=== PATIENT | female | born 1970 | race Caucasian/White ===

== ENCOUNTER → 2019-04-15 10:06 | Outpatient (CLI) | payer BC, SELFPAY ==
--- NOTE | 2019-04-15 10:11 | MM_ITS ---
PROCEDURE: MM DIG SCREENING MAMM BI W/CAD Patient Age:49Y CLINICAL INDICATION: Routine Screening Mammogram COMPARISON: DMSB DIG MAMM-SCREEN CHYNA from 08/15/2013 DMSB DIG MAMM-SCREEN CHYNA from 11/22/2014 DMSB DIG MAMM-SCREEN CHYNA from 02/19/2016 DMSB DIG MAMM-SCREEN CHYNA W/CAD from 03/31/2017 TECHNIQUE: Standard CC and MLO images were obtained. R2 CAD reviewed. FINDINGS: Diffuse dense heterogeneous breast. This pattern bilaterally decreases sensitivity of mammography. No discrete new suspicious densities. No dominant mass. No suspicious calcifications. Heterogeneous areas of density and mild asymmetry seem to be prior to multiple previous studies. Would note that ultrasound may be useful complement/augment to screening mammography in breast of this increased dense character, particularly palpable area arises. IMPRESSION: Dense heterogeneous breast pattern-which does decrease sensitivity of mammography Stable Appearing Mammogram with no new areas of significant concern compared to multiple prior studies , Bilateral follow-up 1 year recommended and encouraged BI-RAD Category: 2 Benign Finding(s) FOLLOW-UP: 1YR 1 Year Follow-up (A letter has been sent to the patient regarding results of the study.) Dictated by: Bill Torres MD 04/20/2019 11:58 Signed by: <Electronically signed by Bill Torres MD in [place]> 04/20/2019 11:58
== END ==
PROVIDERS: PCP Internal Medicine Adolescent Medicine; Visit Provider Nurse Practitioner Obstetrics & Gynecology
DX: Z12.31 Encounter for screening mammogram for malignant neoplasm of breast (principal)
CPT/HCPCS: 77067

== ENCOUNTER → 2019-09-15 09:47 | Outpatient (CLI) | payer BC, SELFPAY ==
--- NOTE | 2019-09-15 09:57 | MR_ITS ---
PROCEDURE: MR ANKLE LT WO/W CON CLINICAL INDICATION: left ankle injury, pain Left ankle injury with pain, fracture, sprain of the ATFL, ATFL tear COMPARISON: XR ANKLE LT MIN 3V from 09/10/2019 TECHNIQUE: Routine multiplanar multi echo sequences are performed without and with gadolinium enhancement. The FINDINGS: There is a type 3 accessory navicular bone. There is some minimal edema at the unfused ossification center with some minimal enhancement suggesting some mild underlying inflammation. No other areas of bone marrow edema are evident. There is an acute mildly displaced avulsion fracture involving the dorsal and proximal aspect of the navicular as seen on the radiograph. There is some minimal edema along the anterior and distal aspect of the talus with a small area of decreased linear signal intensity consistent with an avulsion fracture as also seen on the radiograph. Soft tissue edema is present along the dorsum of the foot at these areas of avulsion fracture. The anterior and posterior tibiofibular ligaments appear intact. There does appear to be a complete tear of the ATFL. There is associated soft tissue swelling along the lateral aspect of the ankle the PT FL appears intact as does the deltoid ligament. No tendinous abnormalities. There is a small amount fluid in the posterior talocalcaneal region. There is an os trigonum with a small amount of fluid around the os trigonum and suggestion of some minimal edema of the os trigonum. IMPRESSION: 1. Tear of the anterior talofibular ligament. 2. Avulsion fracture of the dorsal navicular and dorsal talus distally with soft tissue edema. 3. Type 3 accessory navicular bone with some mild edema at the synchondrosis 4. Soft tissue swelling along the lateral ankle and the dorsal lateral aspect of the midfoot. There is some mild generalized subcutaneous edema about the foot and ankle. The Dictated by: Earl Banegas MD 09/21/2019 08:33 Electronically signed by Earl Banegas MD in [place] 09/21/2019 08:33
== END ==
PROVIDERS: PCP Internal Medicine Adolescent Medicine; Visit Provider Podiatrist
DX: S92.155A Nondisplaced avulsion fracture (chip fracture) of left talus, initial encounter for closed fracture (principal); S92.252A Displaced fracture of navicular [scaphoid] of left foot, initial encounter for closed fracture
CPT/HCPCS: 73723; A9576

== ENCOUNTER → 2019-10-20 15:58 | Outpatient (CLI) | payer BC, SELFPAY ==
--- NOTE | 2019-10-20 16:02 | XR_ITS ---
PROCEDURE: XR ANKLE WT BEARING LT MIN 3V CLINICAL INDICATION: fracture follow up COMPARISON: ANKL3 ANKLE-LT-3 VIEWS from 04/25/2014 XR ANKLE LT MIN 3V from 09/10/2019 FINDINGS: Avulsion fractures are once again noted along the dorsal aspect the talus and navicular as previously described not significantly changed. No new abnormalities are evident. IMPRESSION: No change minimally displaced avulsion fractures at the dorsal aspect of the talus and navicular Dictated by: Earl Banegas MD 10/20/2019 16:40 Electronically signed by Earl Banegas MD in [place] 10/20/2019 16:40
--- NOTE | 2019-10-20 16:02 | XR_ITS ---
PROCEDURE: XR FOOT WT BEARING LT 3V CLINICAL INDICATION: fracture follow up COMPARISON: XR ANKLE LT MIN 3V from 09/10/2019 MR ANKLE LT WO/W CON from 09/15/2019 FINDINGS: No change in the avulsion fracture along the dorsal aspect of the talus distally and at the navicular there is a prominent posterior talar process versus os trigonum and there is a small calcaneal spur. The joint spaces are well-preserved. No significant degenerative/arthritic changes. No erosive changes evident. Other findings:None. IMPRESSION: No change avulsion fractures of the dorsal and distal aspect of the talus and dorsal and proximal aspect of the navicular Dictated by: Earl Banegas MD 10/20/2019 16:43 Electronically signed by Earl Banegas MD in [place] 10/20/2019 16:43
== END ==
PROVIDERS: PCP Internal Medicine Adolescent Medicine; Visit Provider Podiatrist
DX: S92.902A Unspecified fracture of left foot, initial encounter for closed fracture (principal); S93.402A Sprain of unspecified ligament of left ankle, initial encounter
CPT/HCPCS: 73610; 73630

== ENCOUNTER 2019-11-02 16:58 | Outpatient (RCR) | payer BC, SELFPAY ==
--- NOTE | 2019-11-02 18:03 | HMH.PTOPEV ---
PT Outpatient Evaluation Rehab PT Outpatient Evaluation Start: 11/02/19 17:11 Freq: Status: Active Protocol: Document 11/02/19 17:53 STAS (Rec: 11/02/19 18:03 STAS [id number]) Electronically Signed By Robert Addison, PT 11/02/19 17:53 Outpatient Therapy Subjective History Subjective History Patient is a 49 year old female presenting to outpatient PT with reports of L foot/ankle pain S/P L inversion ankle sprain after a fall at home. MRI indicates ATFL with avulsion fractures of the talus and navicular. Injury occurred 09/10/19. No other comorbidites to report. Chief Complaint Pain,Stiff,Weakness Symptom Type Dull Symptoms Relieved By Rest/Positioning Symptoms Aggravated By Standing,Physical Activity, Walking Prior Functional Limitations None Current Functional Limitations Standing,Recreation Activity, Walking,Stairs,Balance Symptom Description Intermittent Level of pain today (0-10) 0 Pain scale - at its best (0-10) 0 Pain scale - at its worst (0-10) 3 Ankle/Foot Eval Gait Observation General Gait Pattern Observation No Deviations/Normal Assistive Device Ambulation Assistive Device None Palpation Tenderness left ATF TTP positive ROM Ankle/Foot Dorsiflexion w/Knee Extended 16 Active Range Motion (degrees) Ankle/Foot Plantar Flexion Active Range WNL of Motion (degrees) Ankle/Foot Eversion Active Range of 18 Motion (degrees) Ankle/Foot Inversion Active Range of 26 Motion (degrees) Ankle/Foot ROM Limitations Soft Tissue Tightness Great Toe ROM Reason Not Measured Within Functional Limits Accessory Movements Ankle Accessory Movements that Elicit Talus Ventral Ridgeway Symptoms MMT left Ankle Dorsiflexion Strength Grade 4- Good- Ankle Plantarflexion Strength Grade 4 Good Foot Eversion Strength Grade 4- Good- Foot Inversion Strength Grade 4- Good- Special Tests Ankle Anterior Drawer Test Negative Left Ankle Eversion Test Negative Left Talar Tilt Test Negative Left Ankle Posterior Drawer Test Negative Left Foot Interdigital Neuroma Test Negative Left Outpatient Therapy Assessment Impairments Problems/Impairmments Palpation Tenderness,Impaired Range of Motion,Impaired Strength,Impaired Walking, Impaired Standing,Impaired
== END 2019-11-02 16:59 | disposition home or self-care (01) ==
LOC: PT 16:58
PROVIDERS: Visit Provider Nurse Practitioner
DX: S92.252D Displaced fracture of navicular [scaphoid] of left foot, subsequent encounter for fracture with routine healing (principal); S92.152D Displaced avulsion fracture (chip fracture) of left talus, subsequent encounter for fracture with routine healing; S93.402D Sprain of unspecified ligament of left ankle, subsequent encounter
CPT/HCPCS: 97163

== ENCOUNTER 2020-08-19 11:09 | Emergency (ER) | payer BC, SELFPAY ==
[2020-08-19 11:10] VITALS: BP 136/80; PULSE 90; RESP 14; TEMP 36.6; O2SAT 97; BMI 27.4
--- NOTE | 2020-08-19 11:57 | HMH.EDUTC ---
[facility] [place] Disposition Clinical Impression: Close exposure to COVID-19 virus Disposition: Home, Self-Care Condition on Discharge: Good Instructions: DI for COVID-19 (Suspected or Confirmed ), Preventing the Spread of Coronavirus Discharge Instructions Additional Instructions: isolate until test results are known retrun if needed Referrals: Andres Baxter MD [Primary Care Provider] - Time of Disposition: 12:04 Medical Decision Making - Eligio Inquiry Pt receiving controlled substance: No Orders (Tests/Meds): ORDERS Category Date Time Status Covid-19 Nasal PCR ([facility]) Routine Lab 08/19/20 11:23 Ordered [facility] [place] HPI - General Chief complaint: Urgent [facility] Stated complaint: covid exposure Time Seen by Provider: 08/19/20 11:58 Source of Information: Patient Limitations: No Limitations - History of Present Illness Provider Complaint: 50 yr old female presents for covid test. pt states she was exposed but denies symptoms. - Related Data Home Medications Medication Instructions Recorded Confirmed bupropion HCl 300 mg 24 hr tablet, 300 mg PO QAM 11/03/17 10/20/19 extended release escitalopram oxalate 20 mg tablet 1 tab PO DAILY #90 tab 04/13/19 10/20/19 Previous Rx's Medication Instructions Recorded diclofenac sodium 1 % topical gel 4 g TOPICAL QID PRN #30 g 09/12/19 tramadol 50 mg tablet 50 mg PO Q6H PRN #30 tab 09/12/19 phentermine 37.5 mg tablet 37.5 mg PO DAILY PRN #60 tab 11/30/19 estradiol 1 mg tablet See Rx Instructions .ROUTE 08/09/20 .COMPLEX #90 tablet Allergies Allergy/AdvReac Type Severity Reaction Status Date / Time NKDA - NO KNOWN DRUG Allergy Unknown Uncoded 09/22/19 14:00 ALLERGIES [facility] History - Hepatitis A Screen Attestation statement:: This patient has been screened for Hepatitis A risk factors. I have reviewed the patient's past medical history: Yes Medical History: Reports:: Anxiety, Depression Denies:: Diabetes Mellitus Type 1, Hyperlipidemia, Hypertension Other Surgeries: Yes: No Previous Surgery Amputation: No Fractures: No Comment: left wrist - Social History Smoking Status: Never smoker Alcohol Intake: current Alcohol Intake Frequency:: holidays/special occasions only Substance Use Type: denies use Occupational Status: employed Household Members: spouse - Psychiatric History Pschychiatric History:: Reports:: Anxiety, Depression Family Hx:: Cancer, Diabetes Comment: Epilepsy ROS Obtained: Yes Systems reviewed as appropriate & no additional complaints - Constitutional Constitutional: Reports system reviewed and no additional complaints, except as docu, Denies fever(s) - Eyes Eyes: Reports system reviewed and no additional complaints, except as docu, Denies itchy eyes - ENT Ears, Nose, Mouth, and Throat: Reports system reviewed and no additional complaints, except as docu, Denies sore throat - Cardiovascular Cardiovascular: Reports system reviewed and no additional complaints, except as docu, Denies chest pain - Respiratory Respiratory: Yes system reviewed and no additional complaints, except as docu, No shortness of breath - Gastrointestinal Gastrointestingal: Reports: system reviewed and no additional complaints, except as docu. Denies: nausea, vomiting - Genitourinary Female Genitourinary: Reports system reviewed and no additional complaints, except as docu - Musculoskeletal Musculoskeletal: Reports system reviewed and no additional complaints, except as docu, Denies tingling - Integumentary/Breasts Skin/Breast: Reports system reviewed and no additional complaints, except as docu, Denies rash - Neurologic Neurologic: Reports system reviewed and no additional complaints, except as docu, Denies dizziness - Endocrine Endocrine: Reports system reviewed and no additional complaints, except as docu, Denies fatigue - Hematologic/Lymphatic Henatologic/Lymphatic: Reports system reviewed and no additional complaints, e
[2020-08-19 12:07] VITALS: BP 136/80; PULSE 90; RESP 14; TEMP 36.6; O2SAT 97
== END 2020-08-19 12:08 | disposition home or self-care (01) ==
PROVIDERS: Emergency Provider Nurse Practitioner Family; PCP Internal Medicine Adolescent Medicine
DX: Z20.822 Contact with and (suspected) exposure to COVID-19 (principal); F41.8 Other specified anxiety disorders
CPT/HCPCS: 99202; G0463; U0003

== ENCOUNTER → 2020-08-31 11:06 | Outpatient (CLI) | payer BC, SELFPAY ==
[2020-09-01 11:37] LABS: Covid-19 Nasal PCR Sendout P&C Negative
== END ==
PROVIDERS: PCP Internal Medicine Adolescent Medicine; Visit Provider Internal Medicine Adolescent Medicine
DX: Z20.822 Contact with and (suspected) exposure to COVID-19 (principal)
CPT/HCPCS: U0004

== ENCOUNTER 2020-09-16 13:47 | Emergency (ER) | payer BC, SELFPAY ==
[2020-09-16 14:00] VITALS: BP 154/88; PULSE 99; RESP 14; TEMP 36.6; O2SAT 97; BMI 21.2
--- NOTE | 2020-09-16 14:23 | HMH.EDUTC ---
[facility] [place] Disposition Clinical Impression: Exposure to COVID-19 virus Disposition: Home, Self-Care Condition on Discharge: Good Instructions: DI for COVID-19 (Suspected or Confirmed ), Preventing the Spread of Coronavirus Discharge Instructions Additional Instructions: Drink plenty of fluids. Take tylenol or ibuprofen for pain or fever. Take the medications as directed. Follow up with your regular doctor. GO TO THE ER FOR ANY WORSENING SYMPTOMS Referrals: Andres Baxter MD [Primary Care Provider] - Time of Disposition: 14:24 Medical Decision Making - Medical Records Medical records reviewed: No: I reviewed the patient's medical records. - Eligio Inquiry Pt receiving controlled substance: No Vital Signs: 09/16/20 14:00 09/16/20 14:28 Temperature 97.8 F 97.8 F Temperature Source Oral Pulse Rate 99 H Pulse Rate [Right Brachial] 99 H Respiratory Rate 14 14 Blood Pressure 154/88 H Blood Pressure [Right Arm] 154/88 H Blood Pressure Mean [Right Arm] 110 Blood Pressure Source [Right Arm] Automatic Cuff Blood Pressure Position [Right Arm] Sitting 02 Sat by Pulse Oximetry 97 Oxygen Delivery Method Room Air [facility] [place] HPI - General Stated complaint: Covid test; headache;cough Time Seen by Provider: 09/16/20 14:23 - History of Present Illness Provider Complaint: She states that her has covid-19 at her home. She has had a mild headache off and on since yesterday. Other than that she denies other symptoms. - Related Data Home Medications Medication Instructions Recorded Confirmed bupropion HCl 300 mg 24 hr tablet, 300 mg PO QAM 11/03/17 10/20/19 extended release escitalopram oxalate 20 mg tablet 1 tab PO DAILY #90 tab 04/13/19 10/20/19 Previous Rx's Medication Instructions Recorded diclofenac sodium 1 % topical gel 4 g TOPICAL QID PRN #30 g 09/12/19 tramadol 50 mg tablet 50 mg PO Q6H PRN #30 tab 09/12/19 phentermine 37.5 mg tablet 37.5 mg PO DAILY PRN #60 tab 11/30/19 estradiol 1 mg tablet See Rx Instructions .ROUTE 08/09/20 .COMPLEX #90 tablet Allergies Allergy/AdvReac Type Severity Reaction Status Date / Time No Known Allergies Allergy Verified 09/16/20 14:25 [facility] History - Hepatitis A Screen Attestation statement:: This patient has been screened for Hepatitis A risk factors. I have reviewed the patient's past medical history: Yes Medical History: Reports:: Anxiety, Depression Denies:: Diabetes Mellitus Type 1, Hyperlipidemia, Hypertension Other Surgeries: Yes: No Previous Surgery Amputation: No Fractures: No Comment: left wrist - Social History Smoking Status: Never smoker Alcohol Intake: never Alcohol Intake Frequency:: holidays/special occasions only Substance Use Type: denies use Occupational Status: other Household Members: spouse - Psychiatric History Pschychiatric History:: Reports:: Anxiety, Depression Family Hx:: Cancer, Diabetes Comment: Epilepsy ROS Obtained: Yes All systems reviewed & no additional complaints - Constitutional Constitutional: Reports system reviewed and no additional complaints, except as docu - Eyes Eyes: Reports system reviewed and no additional complaints, except as docu - ENT Ears, Nose, Mouth, and Throat: Reports system reviewed and no additional complaints, except as docu - Cardiovascular Cardiovascular: Reports system reviewed and no additional complaints, except as docu - Respiratory Respiratory: Reports system reviewed and no additional complaints, except as docu - Gastrointestinal Gastrointestingal: Reports: system reviewed and no additional complaints, except as docu Physical Exam - General General appearance: alert, in no apparent distress - Head Head exam: atraumatic, normocephalic, normal inspection - Eye Eye exam: Present: normal appearance, PERRL, EOMI - ENT ENT exam: Present: normal exam, normal oropharynx, mucous membranes moist, TM's normal bilaterally, normal drafting supervisor
[2020-09-16 14:28] VITALS: BP 154/88; PULSE 99; RESP 14; TEMP 36.6; O2SAT 97
== END 2020-09-16 14:30 | disposition home or self-care (01) ==
PROVIDERS: Emergency Provider Nurse Practitioner Family; PCP Internal Medicine Adolescent Medicine
DX: Z20.822 Contact with and (suspected) exposure to COVID-19 (principal); F41.8 Other specified anxiety disorders
CPT/HCPCS: 99202; G0463; U0003

== ENCOUNTER → 2020-11-15 16:39 | Outpatient (CLI) | payer BC, SELFPAY ==
[2020-11-15 17:02] LABS: Basophils # 0.1 K/mm3 (0-0.2); Basophils % 0.5 % (0.1-2.0); Eosinophils # 0.2 K/mm3 (0.0-0.4); Eosinophils % 1.9 % (0.1-12.0); Hemoglobin 14.1 g/dL (12.2-16.2); Lymphocytes # 1.8 K/mm3 (0.7-4.5); Lymphocytes % 15.2 % (10-50); Mean Corpuscular HGB Conc 32.8 g/dL (31.8-35.4); Mean Corpuscular Hemoglobin 30.4 pg (27.0-31.2); Mean Corpuscular Volume 92.7 fl (81-99); Mean Platelet Volume 7.7 fl (7.4-10.4); Monocytes # 0.5 K/mm3 (0.1-1.0); Monocytes % 4.5 % (1.7-9.3); Neutrophils # 9.2 K/mm3 (1.8-7.8); Neutrophils % 77.9 % (37.0-80.0); Platelet Count 339 K/mm3 (142-424); Red Blood Count 4.64 M/mm3 (4.20-5.40); Red Cell Distribution Width 13.3 % (11.5-17.5); White Blood Count 11.8 K/mm3 (4.8-10.8)
[2020-11-15 17:38] LABS: Alanine Aminotransferase 36 U/L (12-78); Albumin Level 4.3 g/dl (3.5-5.0); Albumin/Globulin Ratio 1.5 (1.1-1.8); Alkaline Phosphatase 98 U/L (38-126); Anion Gap 9.4 mEq/L (5-15); Aspartate Amino Transferase 32 U/L (14-36); Bilirubin,Total 0.3 mg/dl (0.2-1.3); Blood Urea Nitrogen 14 mg/dl (7-17); Calcium 9.4 mg/dl (8.4-10.2); Carbon Dioxide 34 mmol/L (22.0-30.0); Chloride 103 mmol/L (98-107); Estimated Glomerular Filt Rate 76 ml/min (>60); GFR (African American) 92 ML/MIN (>60); Globulin 2.9 g/dL (1.3-3.2); Glucose 102 mg/dl (74-100); Potassium 4.4 mmoL/L (3.5-5.1); Sodium 142 mmol/L (136-145); Total Protein,Serum 7.2 g/dl (6.3-8.2)
[2020-11-15 17:55] LABS: Triiodothryronine (T3) Uptake 27 % (23.5-40.5)
[2020-11-15 18:27] LABS: Vitamin B12 565 pg/mL (239-931)
[2020-11-15 19:23] LABS: Free Thyroxine Index 2.5 ug/dL (5.93-13.13); T4 (Thyroxine) 9.3 ug/dl (5.53-11.0)
[2020-11-15 19:37] LABS: Thyroid Stimulating Hormone 3.14 uIU/mL (0.465-4.68)
== END ==
PROVIDERS: Visit Provider Internal Medicine Adolescent Medicine
DX: B02.9 Zoster without complications (principal); G62.9 Polyneuropathy, unspecified
CPT/HCPCS: 36415; 80053; 82607; 84436; 84443; 84479; 85025

== ENCOUNTER → 2022-03-07 07:55 | Outpatient (CLI) | payer BC, SELFPAY ==
--- NOTE | 2022-03-07 07:55 | MM_ITS ---
PROCEDURE INFORMATION: Exam: MG Bilateral Screening 3D Mammography Exam date and time: 03/07/2022 7:51 AM Age: 51 years old Clinical indication: Screening examination; Additional info: Screening mammogram . Family history of breast carcinoma. TECHNIQUE: Imaging protocol: Bilateral Screening tomosynthesis and 2D mammography including computer-aided detection (CAD) when performed. COMPARISON: 1. MG MM DIG SCREENING MAMM BI W/CAD 04/15/2019 10:20 AM 2. MG DMSB DIG MAMM-SCREEN CHYNA W/CAD 03/31/2017 5:14 PM 3. MG DMSB DIG MAMM-SCREEN CHYNA 02/19/2016 4:15 PM FINDINGS: MAMMOGRAPHY: Breast composition: The breasts are heterogeneously dense, which may obscure small masses. Mass: No suspicious masses. Architectural distortion: No suspicious distortion. Calcifications: No suspicious calcifications. Asymmetric density: None. Skin thickening: None. Axillary adenopathy: None. IMPRESSION: No mammographic evidence of malignancy. Annual screening is recommended unless otherwise clinically indicated. ASSESSMENT: BI-RADS Category 1: Negative
== END ==
PROVIDERS: PCP Internal Medicine Adolescent Medicine; Visit Provider Nurse Practitioner Obstetrics & Gynecology
DX: Z12.31 Encounter for screening mammogram for malignant neoplasm of breast (principal)
CPT/HCPCS: 77063; 77067

== ENCOUNTER → 2022-03-08 08:44 | Outpatient (CLI) | payer BC, SELFPAY | PROVIDERS: PCP Internal Medicine Adolescent Medicine; Visit Provider Surgery | DX: Z01.812 Encounter for preprocedural laboratory examination (principal); Z20.822 Contact with and (suspected) exposure to COVID-19; Z12.11 Encounter for screening for malignant neoplasm of colon | CPT/HCPCS: C9803; U0003; U0005 ==

== ENCOUNTER 2022-03-11 10:24 | Day surgery (SDC) | payer BC, SELFPAY ==
[2022-03-11 10:41] VITALS: BMI 32.9
[2022-03-11 10:49] VITALS: BP 163/105; PULSE 103; RESP 18; TEMP 36.6; O2SAT 96; BMI 32.9
[2022-03-11 10:50] LABS: Urine Pregnancy, HCG Qual. Negative (Negative)
--- NOTE | 2022-03-11 10:51 | P.PN_ITS ---
[facility] Anesthesia Checklist - Patient Identification Patient Identification: Arm Band - Structural Data Admitted From: Home Planned Operative Procedure/s: Colonoscopy Consent for Planned Operative Procedure(s) Verified: Yes - NPO Status Verified Time NPO: 00:00 - Airway Assessment C-Spine Mobility Assessed: Yes TMJ Mobility Assessed: Yes Dentition: Good Dentition - Neurological Assessment Level of Consciousness: Awake Hx Seizures: No Numbness or tingling in extremities: No - Anesthesia Plan Anesthesia Risk discussed: Yes Anesthesia Plan: Verified ASA Class: I Anesthesia Type: MAC [facility] History Medical History: Reports:: Anxiety, Depression Denies:: Diabetes Mellitus Type 1, Hyperlipidemia, Hypertension *Have you ever received a pneumonia vaccine?: No *Have you received a flu vaccine this season?: Yes Anesthesia experience/problems:: None Other Surgeries: Yes: No Previous Surgery Amputation: No Fractures: No - *Social History Smoking Status: Never smoker Alcohol Intake: never Alcohol Intake Frequency:: holidays/special occasions only Substance Use Type: denies use *Occupational Status:: other Household Members: spouse *Travel in the last 8 weeks: None - Psychiatric History Pschychiatric History:: Reports:: Anxiety, Depression Family Hx:: Cancer, Diabetes
[2022-03-11 11:11] VITALS: O2SAT 96
[2022-03-11 11:48] VITALS: BP 119/63; PULSE 75; RESP 18; TEMP 36.3; O2SAT 91
--- NOTE | 2022-03-11 11:57 | P.PCN_ITS ---
- Procedure: Date: 03/11/22 Patient Date of :: 1970 Procedure Performed:: Colonoscopy with polypectomy Indications:: Remote history of colon polyps Performing Provider:: Seaums Bledsoe MD Referring Provider:: . Sedation:: Monitored anesthesia care Procedure:: After informed consent was obtained the patient was taken to the endoscopy suite. Sedation ensued after the patient was transferred to the left lateral decubitus position. Pulse, blood pressure, and oxygen saturation were monitored throughout the procedure. Digital rectal exam revealed no significant abnormality. The colonoscope was placed in position. The entire colon was evaluated. The colonoscope was carefully removed and the patient was transferred to recovery in stable condition. Please see findings and specimens below for detail. Findings:: Small hemorrhoidal tags Profound lack of relaxation Bowel preparation moderate to poor Cecal polyp Specimens:: Sessile cecal polyp (cold snare) Recommendations:: Timing of repeat colonoscopy is pending pathology but likely be between 1-2 yea rs secondary to limited bowel preparation and lack of relaxation. Complications:: No immediate with the exception of moderate to poor bowel preparation Estimated blood obtained (mL): 1
[2022-03-11 11:58] VITALS: BP 101/56; PULSE 63; RESP 18; O2SAT 91
[2022-03-11 12:08] VITALS: BP 120/61; PULSE 76; RESP 18; O2SAT 91
[2022-03-11 12:30] VITALS: BP 110/70; PULSE 65; RESP 18; O2SAT 65
== END 2022-03-11 12:30 | disposition home or self-care (01) ==
LOC: OUTP 10:26
PROVIDERS: PCP Internal Medicine Adolescent Medicine; Visit Provider Surgery
PROC: 0DJD8ZZ Inspection of Lower Intestinal Tract, Via Natural or Artificial Opening Endoscopic (ICD-10-PCS; CPT 45385; principal; 2022-03-11 11:30)
DX: Z12.11 Encounter for screening for malignant neoplasm of colon (principal); K63.5 Polyp of colon; Z86.010 Personal history of colon polyps; Z79.899 Other long term (current) drug therapy; F41.9 Anxiety disorder, unspecified; F32.A Depression, unspecified
CPT/HCPCS: 45385; 81025; J2704

== ENCOUNTER 2022-04-02 13:51 | Emergency (ER) | payer BC, OTHER, SELFPAY ==
[2022-04-02] VITALS (8 sets, daily range): BP systolic 152–187; BP diastolic 70–141; PULSE 74–93; RESP 16–20; TEMP 36.7; O2SAT 92–97; BMI 33.1
--- NOTE | 2022-04-02 13:49 | ECG_ITS ---
APPROVED REPORT Exam: Resting ECG HR:105 bpm ECG Measurements Heart Rate 105 AXES [place] 159 P 73 QRSd 161 QRS -46 QT 383 T 106 QTc 444 Conclusion SINUS TACHYCARDIA POSSIBLE LEFT ATRIAL ENLARGEMENT [-0.1mV P-WAVE IN V1/V2] LEFT AXIS DEVIATION [QRS AXIS < -30] LEFT BUNDLE BRANCH BLOCK [120+ ms QRS DURATION, 80+ ms Q/S IN V1/V2, 85+ ms R IN I/aVL/V5/V6] ABNORMAL ECG UNCONFIRMED REPORT Electronically signed by : Andres Baxter MD 04/02/2022 17:36:03
--- NOTE | 2022-04-02 13:54 | XR_ITS ---
FINAL REPORT CLINICAL HISTORY: chest pain, shortness of breath FINDINGS: TWO-VIEW CHEST There is cardiomegaly and pulmonary vascular congestion. The mediastinum is normal. There is no pneumothorax. IMPRESSION: Cardiomegaly and pulmonary vascular congestion. Reviewed, Interpreted and Dictated by Vishal Martinez III, MD Transcribed by Minerva Rod Authenticated and . [facility]
--- NOTE | 2022-04-02 14:07 | PC.NURSE ---
Spouse at BS
[2022-04-02 14:18] LABS: Basophils # 0.2 K/mm3 (0-0.2); Basophils % 1.6 % (0.1-2.0); Eosinophils # 0.2 K/mm3 (0.0-0.4); Eosinophils % 1.8 % (0.1-12.0); Hematocrit 47.3 % (37.0-47.0); Hemoglobin 15.1 g/dL (12.2-16.2); Lymphocytes # 1.8 K/mm3 (0.7-4.5); Lymphocytes % 13.5 % (10-50); Mean Corpuscular HGB Conc 31.8 g/dL (31.8-35.4); Mean Corpuscular Hemoglobin 30.6 pg (27.0-31.2); Mean Corpuscular Volume 96.3 fl (81-99); Mean Platelet Volume 8.5 fl (7.4-10.4); Monocytes # 0.6 K/mm3 (0.1-1.0); Monocytes % 4.6 % (1.7-9.3); Neutrophils # 10.6 K/mm3 (1.8-7.8); Neutrophils % 78.6 % (37.0-80.0); Platelet Count 379 K/mm3 (142-424); Red Blood Count 4.92 M/mm3 (4.20-5.40); Red Cell Distribution Width 15.2 % (11.5-17.5); White Blood Count 13.4 K/mm3 (4.8-10.8)
[2022-04-02 14:19] LABS: Chloride 105 mmol/L (98-107); Potassium 3.9 mmoL/L (3.5-5.1); Sodium 140 mmol/L (136-145)
--- NOTE | 2022-04-02 14:19 | PC.NURSE ---
notified rad of cxr order
--- NOTE | 2022-04-02 14:20 | PC.NURSE ---
MATHIEU BYRD at
--- NOTE | 2022-04-02 14:20 | PC.NURSE ---
MATHIEU BYRD at
[2022-04-02 14:22] LABS: Anion Gap 11.9 mEq/L (5-15); Blood Urea Nitrogen 18 mg/dl (7-17); Calcium 9.4 mg/dl (8.4-10.2); Carbon Dioxide 27 mmol/L (22.0-30.0); Creatinine Clearance Estimated 88 mL/min (50-200); Estimated Glomerular Filt Rate 58 ml/min (>60); GFR (African American) 70 ML/MIN (>60); Glucose 136 mg/dl (74-100)
--- NOTE | 2022-04-02 14:24 | PC.NURSE ---
Radiology at to take patient over for chest xray via wc
--- NOTE | 2022-04-02 14:45 | PC.NURSE ---
contacted lab to check on status of troponin result, spoke with eunice, states staff is putting results in now.
[2022-04-02 14:46] LABS: Troponin I 0.01 ng/ml (0.00-0.034)
--- NOTE | 2022-04-02 14:48 | CA_ITS ---
APPROVED REPORT EXAM: Comprehensive 2D, Doppler, and color-flow Echocardiogram Platform Consultant: Nazanin Sweeney RVT Ht: 5 ft 3 in Wt: 187lbs BSA: 1.88 BP: 157/109 mmHg Indications: CP,HTN 2D Dimensions IVSd 0.91 cm F: 0.6-1.0 LA Volume 58.20 mL PWd 1.06 cm F: 0.6 - 1.0 LA Volume Index 30.95 mL/m2 (M/F) 16-34 LVDd 5.11 cm F: 3.9 - 5.3 LVOT 1.92 cm (M/F) 1.5-2.5 M-Mode Dimensions RVDd 2.89 cm (0.9-2.6) LA Diam 4.11 cm (1.9-4.0) LVDd 5.98 cm (3.5-5.7) Ao Diam 2.39 cm (2.0-3.7) LVDs 5.27 cm (3.5-5.7) IVSd 0.77 cm (0.6-1.1) PWd 0.72 cm (0.6-1.1) EF (Teich) 25.20% FS 11.90% EDV (Teich) 178.60 mL TAPSE 1.53 (<1.7) ESV (Teich) 133.60 mL LV Diastology MED E' 5.90 (< 7 cm/sec) LAT E' 11.00 (<10 cm/sec) Aortic Valve LVOT Max 65.00 (70-110 cm/s) LVOT VTI 9.14 cm AoV Peak Wagner. 102.00 (50-130 cm/s) AI PHT 407.00 ms AO Peak GR. 4.10 mmHg AO Mean GR. 2.00 (<5 mmHg) AO VTI 14.33 (18-25 cm) BONNIE (VTI) 1.85 (2.5-4.5 cm2) Pulmonary Valve PV Peak Velocity 54.00 (50-150 cm/s) Tricuspid Valve TR P. Velocity 425.00 cm/s RAP Estimate 10.00 mmHg RVSP 82.20 mmHg Left Ventricle Left atrium is moderately enlarged, left ventricle is mildly dilated, mild concentric left ventricular hypertrophy, estimated ejection fraction 15%, left ventricle is globally hypokinetic, there is abnormal septal motion. Doppler evidence of low cardiac output state seen. Diastolic parameters are inconclusive Right Ventricle Right atrium and right ventricle are mildly enlarged with normal contractility. Aortic Valve Aortic valve is minimally thickened and calcified there is no aortic stenosis, there is mild aortic insufficiency. Mitral Valve Mitral valve is minimally thickened, there is mild mitral regurgitation. Tricuspid Valve Tricuspid valve is grossly normal, there is mild tricuspid regurgitation, calculated right ventricular systolic pressure is 46 mmHg. Pulmonic Valve Pulmonic valve is poorly visualized, there is mild pulmonic insufficiency. Great Vessels Aortic root is normal size. Inferior vena cava is mildly dilated with less than 50% inspiratory collapse. Pericardium Small pericardial effusion noted. Conclusion 1. Biatrial enlargement, dilated left ventricle, severely reduced left ventricular systolic function, visually estimated ejection fraction 15% with left ventricle is globally hypokinetic, diastolic parameters are inconclusive, Doppler evidence of low cardiac output state seen. 2. Mildly enlarged right ventricle with normal contractility. 3. Mild aortic, mitral and tricuspid regurgitation, calculated right ventricular systolic pressure is 46 mmHg. 4. Small pericardial effusion noted. 5. Inferior vena cava is mildly dilated with less than 50% inspiratory collapse. Electronically signed by : Trino Lima MD 04/03/2022 06:09:44
--- NOTE | 2022-04-02 14:53 | PC.NURSE ---
notified cv lab of echo order, spoke with luz khanna is getting in a gown as this time.
--- NOTE | 2022-04-02 14:56 | HMH.EDCP ---
ED Disposition Clinical Impression: Cardiomyopathy Qualifiers: Cardiomyopathy type: unspecified Qualified Code(s): I42.9 - Cardiomyopathy, unspecified Disposition: Xfer Short-Term Hosp Condition on Discharge: Fair Referrals: Andres Baxter MD [Primary Care Provider] - Forms: Transfer Record - ED - Critical Care Critical Care Time: No Attestation: On 04/02/22, the high probability of a clinically significant, sudden or life threatening deterioration of the following system(s) required my full and direct attention, intervention and personal management. The time I documented below is in addition to time spent performing reported procedures but includes the following listed in this critical care notation. Medical Decision Making - Medical Records Medical records reviewed: Yes: I reviewed the patient's medical records. - Eligio Inquiry Pt receiving controlled substance: No Vital Signs: 04/02/22 13:53 04/02/22 14:36 04/02/22 15:02 Temperature 98.0 F Temperature Source Oral Pulse Rate 88 89 Pulse Rate [Apical] 93 H Respiratory Rate 20 16 20 Blood Pressure 157/109 H 176/117 H Blood Pressure [Right Arm] 162/117 H Blood Pressure Mean 124 133 Blood Pressure Mean [Right Arm] 132 Blood Pressure Source [Right Arm] Automatic Cuff Blood Pressure Position [Right Arm] Sitting 02 Sat by Pulse Oximetry 95 95 96 Oxygen Delivery Method Room Air Room Air Room Air 04/02/22 15:21 04/02/22 16:16 04/02/22 16:21 Temperature Temperature Source Pulse Rate 90 82 Pulse Rate [Apical] Respiratory Rate 20 20 Blood Pressure 152/102 H 187/141 H 157/101 H Blood Pressure [Right Arm] Blood Pressure Mean 118 121 Blood Pressure Mean [Right Arm] Blood Pressure Source [Right Arm] Blood Pressure Position [Right Arm] 02 Sat by Pulse Oximetry 97 92 L Oxygen Delivery Method Room Air Room Air 04/02/22 17:06 Temperature Temperature Source Pulse Rate 76 Pulse Rate [Apical] Respiratory Rate 18 Blood Pressure 167/99 H Blood Pressure [Right Arm] Blood Pressure Mean 121 Blood Pressure Mean [Right Arm] Blood Pressure Source [Right Arm] Blood Pressure Position [Right Arm] 02 Sat by Pulse Oximetry 95 Oxygen Delivery Method Room Air - Lab Data Lab Results 04/02/22 13:55: WBC 13.4 H, RBC 4.92, Hgb 15.1, Hct 47.3 H, MCV 96.3, MCH 30.6, MCHC 31.8, RDW 15.2, Plt Count 379, MPV 8.5, Neut % (Auto) 78.6, Lymph % (Auto) 13.5, Monona % (Auto) 4.6, Eos % (Auto) 1.8, Baso % (Auto) 1.6, Neut # (Auto) 10.6 H, Lymph # (Auto) 1.8, Monona # (Auto) 0.6, Eos # (Auto) 0.2, Baso # (Auto) 0.2 04/02/22 13:55: Sodium 140, Potassium 3.9, Chloride 105, Carbon Dioxide 27, Anion Gap 11.9, BUN 18 H, Creatinine 1.00, Estimated Creat Clear 88, Estimated GFR 58 L, Est GFR ( Amer) 70, Glucose 136 H, Calcium 9.4, Troponin I 0.01 04/02/22 13:55: NT-Pro-B Natriuret Pep 4740 H 04/02/22 15:47: SARS-CoV-2 (PCR) Not detected, Influenza A Untype (PCR) Not detected, Influenza Type B (PCR) Not detected Result diagrams: 04/02/22 13:55 04/02/22 13:55 Orders (Tests/Meds): ED MEDICATIONS Generic Name Dose Route Start Last Admin Trade Name Freq PRN Reason Stop Dose Admin Sodium Chloride 10 ml 04/02/22 14:16 Sodium Chloride 0.9% 10ml Flush Syringe IV 05/02/22 14:15 NEEDED PRN Maintain IV Site Discontinued Medications Generic Name Dose Route Start Last Admin Trade Name Freq PRN Reason Stop Dose Admin Furosemide 20 mg 04/02/22 15:54 04/02/22 16:16 Furosemide 20 Mg/2 Ml Vial IV 04/02/22 15:55 20 mg ONCE ONE Administration Labetalol HCl 10 mg 04/02/22 15:22 04/02/22 16:16 Labetalol 5mg/Ml 20ml Mdv IV 04/02/22 15:23 10 mg ONCE ONE Administration ORDERS Category Date Time Status Troponin I Q3H Lab 04/02/22 17:00 Ordered Troponin I Q3H Lab 04/02/22 20:00 Ordered Medical Decision Narrative: In review this is a 52-year-old female who presents with chest pain and
--- NOTE | 2022-04-02 15:02 | PC.NURSE ---
cv lab staff at for echo
--- NOTE | 2022-04-02 15:26 | PC.NURSE ---
cv [employer] laborer gave MATHIEU BYRD verbal report at this time
--- NOTE | 2022-04-02 15:27 | PC.NURSE ---
MATHIEU BYRD at
--- NOTE | 2022-04-02 15:28 | PC.NURSE ---
unishear operator paging dr. dudley.
--- NOTE | 2022-04-02 15:29 | PC.NURSE ---
MATHIEU BYRD speaking with Dr. Monteiro.
--- NOTE | 2022-04-02 15:32 | PC.NURSE ---
MATHIEU BYRD speaking with Dr. Baxter
--- NOTE | 2022-04-02 15:37 | PC.NURSE ---
Called [facility] and they will call us back once they get in touch with Cardiology regarding possible patient transfer
--- NOTE | 2022-04-02 15:38 | PC.NURSE ---
ER at discussing pt test results and POC
[2022-04-02 15:48] LABS: NT Pro Brain Natriuretic Pep. 4740 pg/mL (0-125)
--- NOTE | 2022-04-02 15:55 | PC.NURSE ---
covid swab sent to lab at this time
--- NOTE | 2022-04-02 15:58 | PC.NURSE ---
Contacting [facility] for possible transfer. They will be contacting DR. Templeton at [facility] to give us a call back
[2022-04-02 16:02] LABS: Coronavirus 19, PCR Not Detected (NotDetected); Influenza A, PCR Not Detected (NotDetected); Influenza B, PCR Not Detected (NotDetected)
--- NOTE | 2022-04-02 16:09 | PC.NURSE ---
speaking with Dr Baxter
--- NOTE | 2022-04-02 16:11 | PC.NURSE ---
speaking with Dr Templeton at [facility] at this time.
--- NOTE | 2022-04-02 16:40 | PC.NURSE ---
per [facility] they are waiting on the hospitalist to call them back so they can put them in contact with us for acceptance of the pt.
--- NOTE | 2022-04-02 16:47 | PC.NURSE ---
MATHIEU BYRD speaking with dr. benavides at [facility] (hospitalist)
--- NOTE | 2022-04-02 16:49 | PC.NURSE ---
pt ambulatory to restroom with assistance from surg tech without complications.
--- NOTE | 2022-04-02 16:56 | PC.NURSE ---
pt accepted to [place] [address] tele number for report [phone] requested a face sheet be faxed to [phone]
--- NOTE | 2022-04-02 16:58 | PC.NURSE ---
pt given crackers and marce mist, okay's per ER MD. family at BS. pt back from restroom and hooked to monitor without complications
--- NOTE | 2022-04-02 17:16 | PC.NURSE ---
pt updated on POC (transfer), explained to pt we are waiting on EMS to get back in town from a [place] transfer in order for them to transfer her. Pt verbalized understanding. Will continue to monitor
--- NOTE | 2022-04-02 17:27 | PC.NURSE ---
1725- report called estella mathtews at [facility] on 3 tele at this time, notified of eta approx 1.5 hours r/t ambulance on transport at this time. 1727-[facility] notified of transport
--- NOTE | 2022-04-02 17:31 | PC.NURSE ---
ER at speaking with patient per patient request
--- NOTE | 2022-04-02 17:50 | PC.NURSE ---
shift change report given to estella lacey pt is awaiting transport to [facility] per [facility]
--- NOTE | 2022-04-02 18:13 | PC.NURSE ---
Family at BS
[2022-04-02 18:23] LABS: Troponin I 0.01 ng/ml (0.00-0.034)
--- NOTE | 2022-04-02 19:06 | PC.NURSE ---
conscious sedation instructions added in error.
== END 2022-04-02 18:38 | disposition short-term general hospital (02) ==
PROVIDERS: Emergency Provider Student in an Organized Health Care Education/Training Program; PCP Internal Medicine Adolescent Medicine
DX: I42.9 Cardiomyopathy, unspecified (principal); Z79.890 Hormone replacement therapy; Z79.899 Other long term (current) drug therapy; F41.9 Anxiety disorder, unspecified; F32.A Depression, unspecified; Z80.9 Family history of malignant neoplasm, unspecified
CPT/HCPCS: 36415; 71046; 80048; 83880; 84484; 85025; 93005; 93306; 96374; 96375; 99284; C9803; U0003; U0005

== ENCOUNTER → 2022-04-24 12:15 | Outpatient (CLI) | payer BC, SELFPAY ==
[2022-04-24 13:06] LABS: Chloride 105 mmol/L (98-107); Sodium 138 mmol/L (136-145)
[2022-04-24 13:07] LABS: Potassium 5.2 mmoL/L (3.5-5.1)
[2022-04-24 13:10] LABS: Anion Gap 10.2 mEq/L (5-15); Blood Urea Nitrogen 26 mg/dl (7-17); Calcium 8.5 mg/dl (8.4-10.2); Carbon Dioxide 28 mmol/L (22.0-30.0); Estimated Glomerular Filt Rate 66 ml/min (>60); GFR (African American) 80 ML/MIN (>60); Glucose 93 mg/dl (74-100)
[2022-04-24 13:19] LABS: NT Pro Brain Natriuretic Pep. 574 pg/mL (0-125)
== END ==
PROVIDERS: PCP Internal Medicine Adolescent Medicine; Visit Provider Internal Medicine Interventional Cardiology
DX: I50.22 Chronic systolic (congestive) heart failure (principal)
CPT/HCPCS: 36415; 80048; 83880

== ENCOUNTER → 2022-06-05 12:19 | Outpatient (CLI) | payer BC, SELFPAY ==
[2022-06-05 14:20] LABS: Chloride 101 mmol/L (98-107)
[2022-06-05 14:21] LABS: Potassium 4.4 mmoL/L (3.5-5.1); Sodium 140 mmol/L (136-145)
[2022-06-05 14:24] LABS: Anion Gap 15.4 mEq/L (5-15); Blood Urea Nitrogen 17 mg/dl (7-17); Calcium 9.1 mg/dl (8.4-10.2); Carbon Dioxide 28 mmol/L (22.0-30.0); Estimated Glomerular Filt Rate 75 ml/min (>60); GFR (African American) 91 ML/MIN (>60); Glucose 90 mg/dl (74-100)
[2022-06-05 14:32] LABS: NT Pro Brain Natriuretic Pep. 360 pg/mL (0-125)
== END ==
PROVIDERS: PCP Internal Medicine Adolescent Medicine; Visit Provider Internal Medicine Interventional Cardiology
DX: I50.22 Chronic systolic (congestive) heart failure (principal)
CPT/HCPCS: 36415; 80048; 83880

== ENCOUNTER → 2022-12-12 07:50 | Outpatient (CLI) | payer BC, SELFPAY ==
[2022-12-12 08:33] LABS: Basophils # 0.1 K/mm3 (0-0.2); Basophils % 0.5 % (0.1-2.0); Eosinophils # 0.2 K/mm3 (0.0-0.4); Eosinophils % 1.5 % (0.1-12.0); Hematocrit 44.4 % (37.0-47.0); Hemoglobin 14.8 g/dL (12.2-16.2); Lymphocytes # 1.8 K/mm3 (0.7-4.5); Lymphocytes % 17.6 % (10-50); Mean Corpuscular HGB Conc 33.3 g/dL (31.8-35.4); Mean Corpuscular Hemoglobin 31.1 pg (27.0-31.2); Mean Corpuscular Volume 93.7 fl (81-99); Monocytes # 0.6 K/mm3 (0.1-1.0); Monocytes % 5.6 % (1.7-9.3); Neutrophils # 7.6 K/mm3 (1.8-7.8); Neutrophils % 74.9 % (37.0-80.0); Platelet Count 293 K/mm3 (142-424); Red Blood Count 4.74 M/mm3 (4.20-5.40); Red Cell Distribution Width 12.8 % (11.5-17.5); White Blood Count 10.2 K/mm3 (4.8-10.8)
[2022-12-12 08:57] LABS: Alanine Aminotransferase 19 U/L (12-78); Alkaline Phosphatase 80 U/L (38-126); Anion Gap 12.4 mEq/L (5-15); Aspartate Amino Transferase 23 U/L (14-36); Bilirubin,Indirect 0.4 mg/dL (0.0-0.9); Bilirubin,Total 0.4 mg/dl (0.2-1.3); Bilirubin,Unconjugated 0.5 mg/dL (0.0-1.1); Blood Urea Nitrogen 11 mg/dl (7-17); Calcium 8.7 mg/dl (8.4-10.2); Carbon Dioxide 22 mmol/L (22.0-30.0); Chloride 108 mmol/L (98-107); Chol/HDL Ratio 5.3 (1-3.5); Cholesterol 196 mg/dl (140-200); Estimated Glomerular Filt Rate 75 ml/min (>60); GFR (African American) 91 ML/MIN (>60); Glucose 95 mg/dl (74-100); HDL Cholesterol 37 mg/dl (40-60); Potassium 4.4 mmoL/L (3.5-5.1); Sodium 138 mmol/L (136-145); Total Protein,Serum 6.7 g/dl (6.3-8.2); Triglycerides 199 mg/dl (30-150); VLDL Cholesterol 40 mg/dL (0-40)
[2022-12-12 09:07] LABS: Direct LDL Cholesterol 119.68 mg/dL (100-129)
== END ==
PROVIDERS: Nurse Practitioner Family; PCP Internal Medicine Adolescent Medicine; Visit Provider Internal Medicine Interventional Cardiology
DX: E78.00 Pure hypercholesterolemia, unspecified (principal)
CPT/HCPCS: 36415; 80048; 80061; 80076; 85025

== ENCOUNTER → 2023-03-07 10:12 | Outpatient (CLI) | payer BC, SELFPAY ==
[2023-03-07 11:23] LABS: Alanine Aminotransferase 28 U/L (12-78); Albumin Level 3.8 g/dl (3.5-5.0); Alkaline Phosphatase 80 U/L (38-126); Anion Gap 12.1 mEq/L (5-15); Aspartate Amino Transferase 25 U/L (14-36); Bilirubin,Indirect 0.3 mg/dL (0.0-0.9); Bilirubin,Total 0.3 mg/dl (0.2-1.3); Bilirubin,Unconjugated 0.4 mg/dL (0.0-1.1); Blood Urea Nitrogen 11 mg/dl (7-17); Calcium 8.8 mg/dl (8.4-10.2); Carbon Dioxide 22 mmol/L (22.0-30.0); Chloride 109 mmol/L (98-107); Cholesterol 195 mg/dl (140-200); Estimated Glomerular Filt Rate 66 ml/min (>60); GFR (African American) 80 ML/MIN (>60); Glucose 95 mg/dl (74-100); HDL Cholesterol 39 mg/dl (40-60); Potassium 4.1 mmoL/L (3.5-5.1); Sodium 139 mmol/L (136-145); Total Protein,Serum 6.5 g/dl (6.3-8.2); Triglycerides 284 mg/dl (30-150); VLDL Cholesterol 57 mg/dL (0-40)
[2023-03-07 11:32] LABS: NT Pro Brain Natriuretic Pep. 261 pg/mL (0-125)
[2023-03-07 11:34] LABS: Direct LDL Cholesterol 107.57 mg/dL (100-129)
== END ==
PROVIDERS: PCP Internal Medicine Adolescent Medicine; Visit Provider Internal Medicine Interventional Cardiology
DX: E78.00 Pure hypercholesterolemia, unspecified (principal); I50.9 Heart failure, unspecified; N18.2 Chronic kidney disease, stage 2 (mild)
CPT/HCPCS: 36415; 80048; 80061; 80076; 83036; 83880

== ENCOUNTER → 2023-07-01 07:41 | Outpatient (CLI) | payer BC, SELFPAY ==
[2023-07-01 10:13] LABS: Blood Urea Nitrogen 13 mg/dl (7-17); Calcium 8.8 mg/dl (8.4-10.2); Carbon Dioxide 21 mmol/L (22.0-30.0); Chloride 105 mmol/L (98-107); Estimated Glomerular Filt Rate 65 ml/min (>60); GFR (African American) 79 ML/MIN (>60); Glucose 103 mg/dl (74-100); Sodium 137 mmol/L (136-145)
== END ==
PROVIDERS: PCP Internal Medicine Adolescent Medicine; Visit Provider Internal Medicine Interventional Cardiology
DX: I50.9 Heart failure, unspecified (principal)
CPT/HCPCS: 36415; 80048

== ENCOUNTER 2023-10-26 11:14 | Outpatient (CLI) | payer BC, SELFPAY ==
--- NOTE | 2023-10-26 11:16 | MM_ITS ---
PROCEDURE INFORMATION: Exam: MG Bilateral Screening 3D Mammography Exam date and time: 10/26/2023 11:06 AM Age: 53 years old Clinical indication: Screening examination TECHNIQUE: Imaging protocol: Bilateral Screening tomosynthesis and 2D mammography including computer-aided detection (CAD) when performed. COMPARISON: 1. MG MM DIG SCREENING MAMM BI W/CAD 03/07/2022 7:51 AM 2. MG MM DIG SCREENING MAMM BI W/CAD 04/15/2019 10:20 AM FINDINGS: MAMMOGRAPHY: Breast composition: The breasts are heterogeneously dense, which may obscure small masses. Mass: None. Architectural distortion: None. Calcifications: No suspicious calcifications. Asymmetric density: None. Skin thickening: None. Axillary adenopathy: None. IMPRESSION: No mammographic evidence of malignancy. Annual screening is recommended unless otherwise clinically indicated. ASSESSMENT: BI-RADS Category 1: Negative
== END 2023-10-26 23:59 ==
LOC: RAD 11:14
PROVIDERS: PCP Internal Medicine Adolescent Medicine; Visit Provider Nurse Practitioner Obstetrics & Gynecology
DX: Z12.31 Encounter for screening mammogram for malignant neoplasm of breast (principal)
CPT/HCPCS: 77063; 77067

== ENCOUNTER 2023-10-27 10:21 | Day surgery (SDC) | payer BC, SELFPAY ==
[2023-10-27] MEDS: LACTATED RINGERS 1000ML 1,000 ML 25 ML IV (10:36)
[2023-10-27 10:48] VITALS: BP 143/80; PULSE 93; RESP 16; TEMP 36.1; O2SAT 96
--- NOTE | 2023-10-27 11:17 | EXP.ANES.CKL ---
[facility] Disclaimer: The information contained in this section may have been updated after the patient was seen, as this information can be updated by other users. Medical History (Updated 10/27/23 @ 10:37 by Obdulia Dallas RN) Hypertension Heart failure Surgical History (Updated 10/27/23 @ 10:39 by Obdulia Dallas RN) [place] teeth extracted History of colonoscopy History of surgery on left wrist Family History (Updated 10/27/23 @ 10:40 by Obdulia Dallas RN) Father Alzheimer disease Social History Smoking Status: Never smoker alcohol intake: never substance use type: denies use current occupational status: employed Travel in the last 8 weeks: None household members: spouse housing: house current occupation: teacher current occupational exposures/hazards: Yes caffeine: Yes [facility] Anesthesia Checklist Patient Identification Patient Identification: Arm Band Structural Data Admitted From: Home Planned Operative Procedure/s: Colonoscopy Consent for Planned Operative Procedure(s) Verified: Yes Verified Documents: Surgical Consent and History and Physical NPO Status Verified Time NPO: 00:00 Additional verifications Anesthesia Reactions: No Airway Assessment Mallampati Score:: Class II C-Spine Mobility Assessed: Yes TMJ Mobility Assessed: Yes Dentition: Good Dentition Neurological Assessment Level of Consciousness: Awake and Alert Anesthesia Plan Anesthesia Risk discussed: Yes Anesthesia Plan: Verified ASA Class: III Anesthesia Type: MAC
--- NOTE | 2023-10-27 11:27 | HMH.SCOPE ---
Procedure: Date: 10/27/23 Patient Date of :: 1970 Procedure Performed:: Colonoscopy with polypectomy Indications:: History of colon polyps Note:L Last colonoscopy in February 2022 was complicated by moderate to poor bowel preparation and profound lack of relaxation. Small hemorrhoidal tags noted. A cecal adenoma was excised. Performing Provider:: Seamus Bledsoe MD Referring Provider:: . Sedation:: Monitored anesthesia care Procedure:: After informed consent was obtained the patient was taken to the endoscopy suite. Sedation ensued after the patient was transferred to the left lateral decubitus position. Pulse, blood pressure, and oxygen saturation were monitored throughout the procedure. Digital rectal exam revealed no significant abnormality. The colonoscope was placed in position. The entire colon was evaluated. The colonoscope was carefully removed and the patient was transferred to recovery in stable condition. Please see findings and specimens below for detail. Findings:: Bowel preparation moderate Significant lack of relaxation/spasticity Moderate tortuosity Sessile cecal polyp Small sessile right colon polyp Specimens:: Cecal polyp (cold snare) Right colon polyp (cold biopsy forceps) Recommendations:: Timing of repeat colonoscopy is pending pathology will likely be around 3 years secondary to history of polyps, polyps on this evaluation, spasticity/lack of relaxation, and moderate bowel preparation. Complications:: No immediate Estimated blood obtained (mL): 1 Colonoscopy Component Colonoscopy Component Was a colonoscopy performed during today's procedure?: Yes Recommended follow up colonoscopy of at least 10 years?: No If no, follow up colonoscopy recommended in ___ years?: (See above) Reason for not recommending >/= 10 yr follow-up interval?: (See above)
[2023-10-27 11:30] VITALS: O2SAT 896
[2023-10-27 12:14] VITALS: BP 110/65; PULSE 87; RESP 12; TEMP 36.3; O2SAT 94
[2023-10-27 12:24] VITALS: BP 96/58; PULSE 81; RESP 16; O2SAT 100
[2023-10-27 12:34] VITALS: BP 112/67; PULSE 86; RESP 18; O2SAT 100
== END 2023-10-27 12:43 | disposition home or self-care (01) ==
PROVIDERS: PCP Internal Medicine Adolescent Medicine; Visit Provider Surgery
PROC: 0DJD8ZZ Inspection of Lower Intestinal Tract, Via Natural or Artificial Opening Endoscopic (ICD-10-PCS; CPT 45385; principal; 2023-10-27 11:30)
DX: Z12.11 Encounter for screening for malignant neoplasm of colon (principal); Z86.010 Personal history of colon polyps; K56.2 Volvulus; D12.0 Benign neoplasm of cecum; D12.2 Benign neoplasm of ascending colon
CPT/HCPCS: 45385; 45380

== ENCOUNTER 2024-01-05 06:53 | Outpatient (CLI) | payer BC, SELFPAY ==
[2024-01-05 08:17] LABS: Basophils # 0.1 K/mm3 (0-0.2); Basophils % 0.4 % (0.1-2.0); Eosinophils # 0.2 K/mm3 (0.0-0.4); Eosinophils % 1.1 % (0.1-12.0); Hematocrit 45.6 % (37.0-47.0); Hemoglobin 15.4 g/dL (12.2-16.2); Lymphocytes # 1.6 K/mm3 (0.7-4.5); Lymphocytes % 8.5 % (10-50); Mean Corpuscular HGB Conc 33.9 g/dL (31.8-35.4); Mean Corpuscular Hemoglobin 32.1 pg (27.0-31.2); Mean Corpuscular Volume 94.7 fl (81-99); Mean Platelet Volume 8.4 fl (7.4-10.4); Monocytes # 0.7 K/mm3 (0.1-1.0); Monocytes % 3.6 % (1.7-9.3); Neutrophils # 16.4 K/mm3 (1.8-7.8); Neutrophils % 86.5 % (37.0-80.0); Platelet Count 363 K/mm3 (142-424); Red Blood Count 4.81 M/mm3 (4.20-5.40); Red Cell Distribution Width 12.7 % (11.5-17.5)
[2024-01-05 08:25] LABS: MANUAL DIFFERENTIAL MANUAL DIFFERENTIAL (MANUAL DIFF)
[2024-01-05 08:39] LABS: Eosinophils % 2 % (0-3); Lymphocytes % 8 % (10-50); Monocytes % 6 % (2-9); Neutrophils % 84 % (42-76); Platelet Estimate Normal; RBC Morphology Normal; Total Cells Counted 100
[2024-01-05 08:45] LABS: Alanine Aminotransferase 33 U/L (12-78); Albumin Level 4.2 g/dl (3.5-5.0); Alkaline Phosphatase 85 U/L (38-126); Anion Gap 15.9 mEq/L (5-15); Aspartate Amino Transferase 29 U/L (14-36); Bilirubin,Direct 0.1 mg/dl (0.0-0.4); Bilirubin,Indirect 0.6 mg/dL (0.0-0.9); Bilirubin,Total 0.7 mg/dl (0.2-1.3); Bilirubin,Unconjugated 0.6 mg/dL (0.0-1.1); Blood Urea Nitrogen 8 mg/dl (7-17); Calcium 9.5 mg/dl (8.4-10.2); Carbon Dioxide 22 mmol/L (22.0-30.0); Chloride 105 mmol/L (98-107); Chol/HDL Ratio 4.6 (1-3.5); Cholesterol 223 mg/dl (140-200); Estimated Glomerular Filt Rate 65 ml/min (>60); GFR (African American) 79 ML/MIN (>60); Glucose 101 mg/dl (74-100); HDL Cholesterol 49 mg/dl (40-60); Potassium 3.9 mmoL/L (3.5-5.1); Sodium 139 mmol/L (136-145); Total Protein,Serum 7.2 g/dl (6.3-8.2); Triglycerides 191 mg/dl (30-150); VLDL Cholesterol 38 mg/dL (0-40)
[2024-01-05 08:56] LABS: Direct LDL Cholesterol 138.06 mg/dL (100-129)
== END 2024-01-05 23:59 | disposition home or self-care (01) ==
LOC: LAB 06:54
PROVIDERS: PCP Internal Medicine Adolescent Medicine; Visit Provider Internal Medicine Interventional Cardiology
DX: E78.00 Pure hypercholesterolemia, unspecified (principal); I10 Essential (primary) hypertension; E11.9 Type 2 diabetes mellitus without complications; Z79.84 Long term (current) use of oral hypoglycemic drugs
CPT/HCPCS: 36415; 80048; 80061; 80076; 83036; 85007; 85025

== ENCOUNTER 2024-02-04 15:56 | Outpatient (CLI) | payer BC, SELFPAY ==
[2024-02-04 16:24] LABS: Creatinine,Urine Random 152 mg/dL (Not Estab.)
[2024-02-04 16:29] LABS: Microalbumin/Creatinine Ratio 9.2
== END 2024-02-04 23:59 | disposition home or self-care (01) ==
LOC: LAB 15:57
PROVIDERS: PCP Internal Medicine Adolescent Medicine; Visit Provider Internal Medicine Interventional Cardiology
DX: R80.8 Other proteinuria (principal)
CPT/HCPCS: 82043; 82570

== ENCOUNTER 2024-06-10 07:11 | Outpatient (CLI) | payer BC, SELFPAY ==
[2024-06-10 08:02] LABS: Basophils # 0.1 K/mm3 (0-0.2); Basophils % 0.5 % (0.1-2.0); Eosinophils # 0.1 K/mm3 (0.0-0.4); Eosinophils % 1.4 % (0.1-12.0); Hematocrit 43.4 % (37.0-47.0); Lymphocytes % 19.7 % (10-50); Mean Corpuscular HGB Conc 34.6 g/dL (31.8-35.4); Mean Corpuscular Hemoglobin 31.6 pg (27.0-31.2); Mean Corpuscular Volume 91.4 fl (81-99); Mean Platelet Volume 7.8 fl (7.4-10.4); Monocytes # 0.6 K/mm3 (0.1-1.0); Monocytes % 5.5 % (1.7-9.3); Neutrophils # 7.4 K/mm3 (1.8-7.8); Neutrophils % 72.8 % (37.0-80.0); Platelet Count 333 K/mm3 (142-424); Red Blood Count 4.75 M/mm3 (4.20-5.40); Red Cell Distribution Width 12.8 % (11.5-17.5); White Blood Count 10.1 K/mm3 (4.8-10.8)
[2024-06-10 09:02] LABS: Albumin Level 3.8 g/dl (3.5-5.0); Chloride 110 mmol/L (98-107); Sodium 139 mmol/L (136-145)
[2024-06-10 09:03] LABS: Potassium 4.3 mmoL/L (3.5-5.1)
[2024-06-10 09:05] LABS: Alanine Aminotransferase 14 U/L (12-78); Alkaline Phosphatase 68 U/L (38-126); Anion Gap 9.3 mEq/L (5-15); Aspartate Amino Transferase 18 U/L (14-36); Bilirubin,Direct 0.2 mg/dl (0.0-0.4); Bilirubin,Indirect 0.3 mg/dL (0.0-0.9); Bilirubin,Total 0.5 mg/dl (0.2-1.3); Bilirubin,Unconjugated 0.3 mg/dL (0.0-1.1); Blood Urea Nitrogen 13 mg/dl (7-17); Carbon Dioxide 24 mmol/L (22.0-30.0); Cholesterol 199 mg/dl (140-200); Estimated Glomerular Filt Rate 65 ml/min (>60); GFR (African American) 79 ML/MIN (>60); Total Protein,Serum 6.4 g/dl (6.3-8.2); Triglycerides 240 mg/dl (30-150); VLDL Cholesterol 48 mg/dL (0-40)
[2024-06-10 09:06] LABS: Calcium 8.9 mg/dl (8.4-10.2); Chol/HDL Ratio 6.4 (1-3.5); Glucose 99 mg/dl (74-100); HDL Cholesterol 31 mg/dl (40-60)
[2024-06-10 09:12] LABS: C-Reactive Protein 9.2 mg/L (0-4)
[2024-06-10 09:17] LABS: Direct LDL Cholesterol 130.93 mg/dL (100-129)
[2024-07-12 16:10] LABS: Lipoprotein A 24.9
== END 2024-06-10 23:59 | disposition home or self-care (01) ==
LOC: LAB 07:14
PROVIDERS: PCP Internal Medicine Adolescent Medicine; Visit Provider Internal Medicine Interventional Cardiology
DX: E78.5 Hyperlipidemia, unspecified (principal); I10 Essential (primary) hypertension
CPT/HCPCS: 36415; 80048; 80061; 80076; 83036; 83695; 85025; 86140

== ENCOUNTER 2024-09-16 09:49 | Outpatient (CLI) | payer BC, SELFPAY ==
[2024-09-16 11:25] LABS: Alanine Aminotransferase 21 U/L (12-78); Albumin Level 4.4 g/dl (3.5-5.0); Alkaline Phosphatase 105 U/L (38-126); Aspartate Amino Transferase 28 U/L (14-36); Bilirubin,Direct 0.2 mg/dl (0.0-0.4); Bilirubin,Indirect 0.4 mg/dL (0.0-0.9); Bilirubin,Total 0.6 mg/dl (0.2-1.3); Bilirubin,Unconjugated 0.4 mg/dL (0.0-1.1); Chol/HDL Ratio 3.4 (1-3.5); Cholesterol 134 mg/dl (140-200); HDL Cholesterol 39 mg/dl (40-60); Triglycerides 153 mg/dl (30-150); VLDL Cholesterol 31 mg/dL (0-40)
[2024-09-16 11:36] LABS: Direct LDL Cholesterol 69.06 mg/dL (100-129)
== END 2024-09-16 23:59 | disposition home or self-care (01) ==
LOC: LAB 09:53
PROVIDERS: PCP Internal Medicine Adolescent Medicine; Visit Provider Internal Medicine Interventional Cardiology
DX: E78.00 Pure hypercholesterolemia, unspecified (principal)
CPT/HCPCS: 36415; 80061; 80076; 83036

== ENCOUNTER 2024-12-16 07:05 | Outpatient (CLI) | payer BC, SELFPAY ==
[2024-12-16 08:17] LABS: Chol/HDL Ratio 3.2 (1-3.5); Cholesterol 127 mg/dl (140-200); HDL Cholesterol 40 mg/dl (40-60); Triglycerides 165 mg/dl (30-150); VLDL Cholesterol 33 mg/dL (0-40)
[2024-12-16 08:28] LABS: Direct LDL Cholesterol 54.45 mg/dL (100-129); NT Pro Brain Natriuretic Pep. 181 pg/mL (0-125)
[2024-12-16 10:20] LABS: Creatinine,Urine Random 178 mg/dL (Not Estab.)
[2024-12-16 10:25] LABS: Microalbumin/Creatinine Ratio 5.1
[2024-12-17 09:24] LABS: C-Reactive Protein, Cardiac 3.98 mg/L (0.00-3.00)
[2024-12-19 15:11] LABS: Lipoprotein A 22.9 nmol/L (<75.0)
== END 2024-12-16 23:59 | disposition home or self-care (01) ==
PROVIDERS: PCP Internal Medicine Adolescent Medicine; Visit Provider Internal Medicine Interventional Cardiology
DX: N18.2 Chronic kidney disease, stage 2 (mild) (principal); I50.22 Chronic systolic (congestive) heart failure
CPT/HCPCS: 36415; 80061; 82043; 82570; 83695; 83880; 86141

== ENCOUNTER 2025-06-20 06:45 | Outpatient (CLI) | payer BC, SELFPAY ==
--- OUTSIDE RECORDS SUMMARY | 2024-02-19 11:45 | XMS_ITS ---
Author Organization [facility] PE D [facility] Address [address] [place] [address] Care Team Providers Care Ammonia Box Operator Name Role Phone Andres Baxter Primary Care Provider Yolis Amaro [phone] REASON FOR VISIT Sinus Infection Encounters Encounter Location Date Provider Diagnosis [address] [address] 02/19/2024 Yolis Amaro Plan Of Treatment No Information Progress Notes * ELLE, SaraiDOB:1970 (55 yo F)Acc No.[id number]:02/19/2024 Progress Notes Patient: Sarai HANSEN Provider: MARIA LUZ Luong :1970 A ge:53 Y S ex:Female Date:02/19/2024 Address:[address] [id number] Pcp:Andres Baxter Subjective: * Chief Complaints: * 1 . Sinus Infection. * Medical History: Objective: * Vitals: Assessment: Plan: * Treatment: * * Electronic signature of Sharlene Amaro PA-C on 06/20/2025 at 06:47 AM EST Sign off status: Pending * Provider: MARIA LUZ Luong Date: 0 02/19/2024 Generated for Charu sandoval/Colt/Demetriaitting on: 08/20/2024 06:47 AM EST
--- OUTSIDE RECORDS SUMMARY | 2024-11-19 16:30 | XMS_ITS ---
Author Organization [facility] PE D C[facility]ELA Address [address] [place] [address] Care Team Providers Care Trauma Nurse Name Role Phone Andres Baxter Primary Care Provider Migration, Provider Unavailable Unavailable Allergies Allergen (clinical drug ingredient) Drug/Non Drug Allergy documented on EMR Reaction Allergy Type Onset Date Status sulfamethoxazole / trimethoprim Bactrim DS rash Drug Allergy Active REASON FOR VISIT [facility] Encounter Medications Medication SIG (Take, Route, Frequency, Duration) Notes Start Date End Date Status Estradiol 1 MG 1 tab(s) orally once a day Active Levocetirizine Dihydrochloride 5 MG 1 tab(s) orally once a day (in the evening); Duration: 90 days Active Singulair 10 MG 1 tab(s) orally once a day (in the evening); Duration: 30 day(s) Active Nitrofurantoin Macrocrystal 100 MG 1 cap(s) orally 2 times a day; Duration: 7 days 04/28/2024 Active Fluticasone Propionate 50 MCG/ACT 2 spray(s) intranasally once a day; Duration: 30 Active Entresto 24-26 MG 1 tab(s) orally 2 times a day Active Azelastine-Fluticason e 137 MCG-50 MCG/INH 1 SPRAY(S) INTRANASALLY 2 TIMES A DAY; Duration: 90 DAYS *Please review and pick correct strength-formulat ion from [facility] options. If intended option is not shown, discontinue and re-order from Quick Search* Active Escitalopram Oxalate 20 MG 1 tab(s) orally once a day; Duration: 90 days Active Carvedilol 6.25 MG 1 tab(s) orally 2 times a day; Duration: 30 day(s) Active Spironolactone 50 MG 1 tab(s) orally onc e a day; Duration: 30 day(s) Active OZEMPIC 8 MG/3 ML (2 MG DOSE) DIRECTED SUBCUTANEOUSLY ONCE A WEEK *Please review for potential replacement for e-prescription and drug interaction check* Active Norethindrone Acetate 5 MG 1 tab(s) orally once a day Active Jardiance 10 MG 1 tab(s) orally once a day (in the morning) Active Encounters Encounter Location Date Provider Diagnosis [facility] [address] [facility] [address] [place] [address] 11/19/2024 Provider Migration Vasomotor rhinitis J30.0 and Dysuria R30.0 Assessments Encounter Date Diagnosis (ICD Code) Assessment Notes Treatment Notes Treatment Clinical Notes Section Notes 11/19/2024 Vasomotor rhinitis (ICD-10 - J30.0) 11/19/2024 Dysuria (ICD-10 - R30.0) Plan Of Treatment Medication Medication Name Sig Start Date Stop Date Notes Singulair 10 MG 1 tab(s) orally once a day (in the evening); Duration: 30 day(s) Nitrofurantoin Macrocrystal 100 MG 1 cap(s) orally 2 times a day; Duration: 7 days 04/28/2024 Azelastine-Fluticasone 137 MCG-50 MCG/INH 1 SPRAY(S) INTRANASALLY 2 TIMES A DAY; Duration: 90 DAYS *Please review and pick correct strength-formulation from [facility] options. If intended option is not shown, discontinue and re-order from Quick Search* Escitalopram Oxalate 20 MG 1 tab(s) orally once a day; Duration: 90 days Progress Notes * Sarai ALMEIDADOB:1970 (55 yo F)Acc No.[id number]:11/19/2024 Patient: Sarai HANSEN Provider: Anish degroot Migration :1970 A ge:54 Y S ex:Female Date:11/19/2024 Address:[address], [place], [id number] Pcp:Andres Baxter Subjective: * Chief Complaints: * 1 . Multum To [facility] Conversion Encounter. * Medical History: * Medications: T aking OZEMPIC 8 MG/3 ML (2 MG DOSE) SOLUTION DIRECTED SUBCUTANEOUSLY ONCE A WEEK , Notes to Pharmacist: *Please review for potential replacement for e-prescription and drug interaction check*, Taking Norethindrone Acetate 5 MG Tablet 1 tab(s) orally once a day , Taking Jardiance 10 MG Tablet 1 tab(s) orally once a day (in the morning) , Taking Carvedilol 6.25 MG Tablet 1 tab(s) orally 2 times a day , Taking Spironolactone 50 MG Tablet 1 tab(s) orally once a day , Taking Entresto 24-26 MG Tablet 1 tab(s) orally 2 times a day , Taking Estradiol 1 MG Tablet 1 tab(s) orally once a day , Taking Levocetirizine Dihydrochloride 5 MG Tablet 1 tab(s) orally once a day (in the evening) , Taking Fluticasone Propionate 50 MCG/ACT Suspension 2 spray(s) intranasally once a day * Allergies: B actrim DS: rash. Objective: * Vitals: Assessment: * Assessment: 1. D ysuria - R30.0 (Primary) 2 . V asomotor rhinitis - J30.0 ? Plan: * Treatment: 2. V asomotor rhinitis Start Azelastine-Fluticasone SPRAY, 137 MCG-50 MCG/INH, 1 SPRAY(S), INTRANASALLY, 2 TIMES A DAY, 90 DAYS, 3, Refills 1, Notes to Pharmacist: *Please review and pick correct strength-formulation from [facility] options. If intended option is not shown, discontinue and re-order from Quick Search*. 3. O thers Start Singulair Tablet, 10 MG, 1 tab(s), orally, once a day (in the evening), 30 day(s), 30, Refills 3; S tart Escitalopram Oxalate Tablet, 20 MG, 1 tab(s), orally, once a day, 90 days, 90, Refills 0. * * Electronic signature of Prov ider Migration on 06/20/2025 at 06:47 AM EST Sign off status: Pending * Provider: Anish degroot Migration Date: 0 11/19/2024 Generated for Charu sandoval/Colt/Annabella on: 1 08/20/2024 06:47 AM EST
--- OUTSIDE RECORDS SUMMARY | 2025-06-20 06:47 | XMS_ITS | Encounter Summary ---
Author Organization [facility] Address [address] [place] [address] Care Team Providers Care Director Of Orthopedics Name Role Phone Andres Sow MD Primary Care Provider [phone] Reason for Visit * Reason Onset Date Comments DR. CASTRO- ORDERS/ MEDICATION UPDATE 06/01/2025 Encounter Details Date Type Department Care Team (Late st Contact Info) Description 06/01/2025 Telephone [facility] [address] [facility] [address] [phone] Chetan Castro MD [address] [facility] [address] [place] [address] DR. CASTRO- ORDERS/ MEDICATION UPDATE Social History Tobacco Use Types Packs/Day Years Used Date Smoking Tobacco: Former Cigarettes Smokeless Tobacco: Never Alcohol Use Standard Drinks/Week Comments Yes 0 (1 standard drink = 0.6 oz pur e alcohol) CURRENT SOME DAY Comments Unknown Sex and Gender Information Value Date Recorded Sex Assigned at Female 12/16/2024 7:49 AM EDT Legal Sex Female 12:51 PM EST Gender Identity Not on file Sexual Orientation Straight 12/16/2024 7: 49 AM EDT documented as of this encounter Miscellaneous Notes * Telephone Encounter - Medardo Stauffer RegSched Rep - 06/09/2025 2:05 PM EDT FAXED LAB ORDERS TO DR SOW'S OFFICE - CONFIRMED SENT SUCCESSFULLY * Telephone Encounter - Neftaly Merino RegSched Rep - 06/09/2025 1:[address] SOW, OFFICE CALLED NEVER HAD ORDERS SENT OVER PLEASE ADVISE AND RESEND * Telephone Encounter - Rebeca Panda MA - 06/01/2025 12:46 PM EDT Attempted call to patient again, to advise lab orders have already been faxed to Dr. Sow's office, no answer, left message on machine. * Telephone Encounter - Kathie Lamas RegSched Rep - 06/01/2025 12:18 PM EDT Caller: Sarai Norris Relationship: Self Best call back number: [phone] What orders are you requesting (i.e. lab or imaging): LABS In what timeframe would the patient need to come in: KRYSTAL Where will you receive your lab/imaging services: DR. SOW'S OFFICE FAX: [phone] Additional notes: PATIENT IS CALLING TO HAVE LAB ORDERS FAXED OVER TO DR. SOW'S OFFICE AT [phone]. PATIENT WILL BE IN HIS OFFICE ON 06-19-25. PATIENT ALSO WAS SEEN BY [facility] ON 05-29-[address] SOW'S OFFICE AND HER BP WAS LOW AND AGAIN LATER SAME DAY BY [facility] AND BP WAS LOW. [facility] AT DR. SOW'S OFFICE LOWERED PATIENTS DOSAGE ON HER CARVEDILOL FROM 6.25 MG TO 3.25 MG 2TIMES DAILY. documented in this encounter Plan of Treatment Upcoming Encounters Date Type Department Care Team (Late st Contact Info) Description 06/26/2025 9:30 AM EST Office Visit [facility] [address] [facility] [address] [place] [phone] Chetan Castro MD [address] [facility] [address] [place] [address] documented as of this encounter Visit Diagnoses Not on filedocumented in this encounter Care Teams Director Of Orthopedics Relationship Specialty Start Date End Date Andres Sow MD [address] [facility] [address] [facility] [address] [place] [address] PCP - General Adolescent Medicine 09/23/24 documented as of this encounter
--- OUTSIDE RECORDS SUMMARY | 2025-06-20 06:48 | XMS_ITS | Encounter Summary ---
Author Organization [facility] Address [address] [place] [address] Care Team Providers Care Slot Attendant Name Role Phone Andres Baxter MD Primary Care Provider [phone] Reason for Visit * Reason Comments Med Refill Encounter Details Date Type Department Care Team (Late st Contact Info) Description 06/15/[address] [facility] C[facility] [address] [facility] [address] [address] Chetan Templeton MD [address] [facility] [address] [place] [address] Med Refill Social History Tobacco Use Types Packs/Day Years [...] encounter Miscellaneous Notes * Telephone Encounter - Sneha Guzman MA - 06/15/2025 1:15 PM EDT Rx Refill Note Requested Prescriptions Pending Prescriptions Disp Refills rosuvastatin (CRESTOR) 40 MG tablet [Pharmacy Med Name: ROSUVASTATIN 40MG TABLETS] 90 tablet 1 Sig: TAKE 1 TABLET BY MOUTH EVERY NIGHT Last office visit with prescribing clinician: 12/23/2024 Next office visit with prescribing clinician: 06/26/2025 Patient passed protocols per mehran. Sneha Guzman MA 06/15/25, 13:15 EDT documented in this encounter Plan of Treatment Upcoming Encounters Date Type Department Care Team (Late st Contact Info) Description 06/26/2025 9:30 AM EST Office Visit [facility] [address] [facility] [address] [address] Chetan Templeton MD [address] [facility] [address] [place] [address] documented as of this encounter Visit Diagnoses Diagnosis Hyperlipidemia LDL goal <70 Other and unspecified hyperlipidemia documented in this encounter Care Teams Slot Attendant Relationship Specialty Start Date End Date Andres Baxter MD [address] [facility] [address] [place] [address] PCP - General Adolescent Medicine 09/23/24 documented as of this encounter
--- OUTSIDE RECORDS SUMMARY | 2025-06-20 06:48 | XMS_ITS | Encounter Summary ---
Author Organization [facility] Address [address] [place] [address] Care Team Providers Care Skin Specialist Name Role Phone Andres Baxter MD Primary Care Provider [phone] Reason for Visit * Reason Comments Med Refill Encounter Details Date Type Department Care Team (Late st Contact Info) Description 05/01/2025 Refill [facility] C[facility]IOLOG[facility] [address] [facility] [address] [address] Chetan Templeton MD [address] [facility] [address] [place] [address] Med Refill Social History Tobacco Use Types [...] Telephone Encounter - Sneha Guzman MA - 05/01/2025 9:25 AM EDT Rx Refill Note Requested Prescriptions Pending Prescriptions Disp Refills Ozempic, 2 MG/DOSE, 8 MG/3ML solution pen-injector [Pharmacy Med Name: OZEMPIC 2MG PER DOSE (8MG/3ML) PFP] 9 mL 1 Sig: INJECT 2 MG UNDER THE SKIN ONCE WEEKLY ON THE SAME DAY EACH WEEK Last office visit with prescribing clinician: 12/23/2024 Last telemedicine visit with prescribing clinician: Visit date not found Next office visit with prescribing clinician: 06/26/2025 Pharmacy Info Last Fill Date: Rx Written Date: Prescribed Qty: Additional Details from Pharmacy: Patient passed protocols per mehran. Sneha Guzman MA 05/01/25, 09:25 EDT documented in this encounter Plan of Treatment Upcoming Encounters Date Type Department Care Team (Late st Contact Info) Description 06/26/2025 9:30 AM EST Office Visit [facility] C[facility] [address] [facility] [address] [place] [phone] Chetan Templeton MD [address] [facility] [address] [place] [address] documented as of this encounter Visit Diagnoses Diagnosis Atherosclerosis of [place] coronary artery of [place] heart without angina pectoris documented in this encounter Care Teams Skin Specialist Relationship Specialty Start Date End Date Andres Baxter MD [address] [facility] [address] [place] [address] PCP - General Adolescent Medicine 09/23/24 documented as of this encounter
--- OUTSIDE RECORDS SUMMARY | 2025-06-20 06:48 | XMS_ITS | Encounter Summary ---
Author Organization [facility] Address [address] [place] [address] Care Team Providers Care Glass Forming Crew Member Name Role Phone Andres Baxter MD Primary Care Provider [phone] Reason for Visit * Reason Comments Med Refill Encounter Details Date Type Department Care Team (Late st Contact Info) Description 05/23/2025 Refill [facility] C[facility]IOLOGY [address] [facility] [address], [place] [address] Chetan Templeton MD [address] [facility] [address] [place] [address] Med Refill Social History Tobacco Use Types [...] Telephone Encounter - Sneha Guzman MA - 05/23/2025 10:44 AM EDT Rx Refill Note Requested Prescriptions Pending Prescriptions Disp Refills Jardiance 10 MG tablet tablet [Pharmacy Med Name: JARDIANCE 10MG TABLETS] 90 tablet 0 Sig: TAKE 1 TABLET BY MOUTH DAILY Last office visit with prescribing clinician: 12/23/2024 Last telemedicine visit with prescribing clinician: Visit date not found Next office visit with prescribing clinician: 06/26/2025 Pharmacy Info Last Fill Date: Rx Written Date: Prescribed Qty: Additional Details from Pharmacy: Patient passed protocols per mehran. Sneha Guzman MA 05/23/25, 10:44 EDT documented in this encounter Plan of Treatment Upcoming Encounters Date Type Department Care Team (Late st Contact Info) Description 06/26/2025 9:30 AM EST Office Visit [facility] C[facility]IOLOG[facility] [address] [facility] [address], [place] [phone] Chetan Templeton MD [address] [facility] [address] [place] [address] documented as of this encounter Visit Diagnoses Not on filedocumented in this encounter Care Teams Glass Forming Crew Member Relationship Specialty Start Date End Date Andres Baxter MD [address] [facility] [address] [place] [address] PCP - General Adolescent Medicine 09/23/24 documented as of this encounter
--- OUTSIDE RECORDS SUMMARY | 2025-06-20 06:48 | XMS_ITS | Encounter Summary ---
Author Organization [facility] Address [address] [place] [address] Care Team Providers Care Basic Sciences Dean Name Role Phone Andres Sow MD Primary Care Provider [phone] Reason for Visit * Reason Onset Date Comments LAB ORDER REQUEST 05/29/2025 Encounter Details Date Type Department Care Team (Late st Contact Info) Description 05/29/2025 Telephone [facility] CARDIOLOGY [address] [phone] Chetan Castro MD [address] [facility] [address] [place] [address] LAB ORDER REQUEST Social History Tobacco Use Types Packs/Day Years [...] encounter Miscellaneous Notes * Telephone Encounter - Maira Bradford MA - 05/30/2025 12:46 PM EDT I faxed lab orders over at 830 this morning. LMOM advising patient labs were faxed and asked for a return call for further questions. * Telephone Encounter - Sneha Guzman MA - 05/30/2025 9:25 AM EDT LMOM for patient to give the office a call back. Anyone from [place] station can take call or give message. * Telephone Encounter - Rebeca Panda MA - 05/29/2025 3:45 PM EDT Attempted call to patient, left message on machine. 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 DR SOW OFFICE. SHE WILL NEED TO KNOW THAT THIS ARE GOING TO FAXED SOON BECAUSE SHE NEEDS TO LET HER JOB KNOW BEFORE 10.27.25 SHE CAN REQUEST OFF. PLEASE CALL PT documented in this encounter Plan of Treatment Upcoming Encounters Date Type Department Care Team (Late st Contact Info) Description 06/26/2025 9:30 AM EST Office Visit [facility] CARDIOLOGY [address] [facility] [address], [place] [address] Chetan Castro MD [address] [facility] [address] [place] [address] documented as of this encounter Visit Diagnoses Not on filedocumented in this encounter Care Teams Basic Sciences Dean Relationship Specialty Start Date End Date Andres Sow MD [address] [place] [facility] [address] [place] [address] PCP - General Adolescent Medicine 09/23/24 documented as of this encounter
--- OUTSIDE RECORDS SUMMARY | 2025-06-20 06:48 | XMS_ITS | Patient Health Record ---
Author Organization [facility] Address [address] [place] [address] Care Team Providers Care Marine Pipe Welder Name Role Phone Andres Baxter Primary Care Provider Nora Preciado Unavailable [phone] Migration, Provider Unavailable Unavailable Allergies Allergen (clinical drug ingredient) Drug/Non Drug Allergy documented on EMR Reaction Allergy Type Onset Date Status sulfamethoxazole / trimethoprim Bactrim DS rash Drug Allergy Active Medications Medication SIG (Take, Route, Frequency, Duration) Notes Start Date End Date Status Montelukast Sodium 10 MG 1 tablet Orally Once a day Active Gallifrey 5 MG 1 tablet Orally Once a day Active Hyaluronic Acid 100 MG as directed Orally 1000mg Active Estradiol 1 MG 1 tab(s) orally once a day Active Unisom SleepTabs 25 MG 1 tablet at bedti me as needed Orally Once a day Active Spironolactone 50 MG 1 tab(s) orally onc e a day; Duration: 30 day(s) Active Vitamin D3 125 MCG (5000 UT) 1 capsule Orally Once a day Active Entresto 24-26 MG 1 tab(s) orally 2 ti mes a day Active Azelastine-Fluticasone 137 MCG-50 MCG/INH 1 SPRAY(S) INTRANASALLY 2 TIMES A DAY; Duration: 90 DAYS Active Carvedilol 3.125 MG 1 tab(s) orally 2 ti mes a day; Duration: 90 days Active Jardiance 10 MG 1 tab(s) orally once a day (in the morning) Active OZEMPIC 8 MG/3 ML (2 MG DOSE) DIRECTED SUBCUTANEOUSLY ONCE A WEEK Active Escitalopram Oxalate 20 MG 1 tablet Oral ly Once a day; Duration: 90 days Active Rosuvastatin Calcium 40 MG 1 tablet Oral ly Once a day Active Levocetirizine Dihydrochloride 5 MG 1 tab(s) orally once a day (in the evening); Duration: 90 days Active Immunizations Vaccine Route Administration Date Status Comme nts Flublok IM Intramuscular 05/31/2020 Administered FLUCELVAX IM Intramuscular 05/30/2025 Administered FLUZONE 6MO - OLDER IM Intramuscular 04/14/2022 Administer ed FLUZONE 6MO - OLDER IM Intramuscular 04/28/2024 Administer ed SHINGRIX IM Intramuscular 03/28/2020 Administered SHINGRIX IM Intramuscular 05/31/2020 Administered Problems Problem Type SNOMED Code ICD Code Onset Dates Problem Status W/U Status Risk Notes Problem Primary insomnia (9824697) Primary insomnia (F51.01) Active confirmed Problem Vasomotor rhinitis (3937102) Vasomotor rhinitis (J30.0) Active confirmed Problem Chronic rhinitis (55131028) Chronic rhinitis (J31.0) Active confirmed Problem Dysuria (46398678) Dysuria (R30.0) Active confirmed Problem Obese class I (finding) (254851001833796 ) Obesity (BMI 30.0-34.9) (E66.9) Active confirmed Problem Mixed anxiety and depressive disorder (041450490) Depression with anxiety (F41.8) Active confirmed Problem Anxiety (32533860) Anxiety (F41.9) Active confirmed Problem Neuropathy (575033318) Neuropathy (G62.9) Active confirmed Problem Essential hypertension (02234119) Essential hypertension (I10) Active confirmed Problem Seasonal allergy (015602042) Seasonal allergies (J30.2) Active confirmed Problem Allergic rhinitis (10589008) Chronic allergic rhinitis (J30.9) Active confirmed Problem Body mass index 30.00 to 34.99 (414972509455640 ) BMI 34.0-34.9,adult (Z68.34) Active confirmed Problem Body mass index 30.00 to 34.99 (983546692546152 ) BMI 31.0-31.9,adult (Z68.31) Active confirmed Problem Obese class I (542198068773206 ) BMI 33.0-33.9,adult (Z68.33) Active confirmed Problem Chronic systolic heart failure (239311756) Chronic systolic congestive heart failure (I50.22) Active confirmed Problem Chronic insomnia (515347868) Chronic insomnia (F51.04) Active confirmed Problem Skin tag (09461406) Skin tag (L91.8) Active confirmed Problem Obese class II (546357132624822 ) BMI 35.0-35.9,adult (Z68.35) Active confirmed Problem Shoulder joint pain (048461774) Acute pain of left shoulder (M25.512) Active confirmed Problem Adult health examination (878884780) Healthcare maintenance (Z00.00) Active confirmed Problem Seasonal allergic rhinitis (157436725) Acute seasonal allergic rhinitis (J30.2) Active confirmed Problem Chronic kidney disease stage 2 (784440665) Stage 2 chronic kidney disease (N18.2) Active confirmed Problem COVID-19 (449334121) COVID-19 (U07.1) Active confirmed Problem Systolic heart failure (748141460) HFrEF (heart failure with reduced ejection fraction) (I50.20) Active confirmed Vital Signs Heart Rate 80 /min 05/30/2025 Temperature 97.6 degrees Fahrenheit 05/30/2025 Blood pressure diastolic 64 mm Hg 05/30/2025 Height 62.5 in 05/30/2025 Blood pressure systolic 90 mm Hg 05/30/2025 Weight 157.2 lbs 05/30/2025 BMI 28.29 kg/m2 05/30/2025 Encounters Encounter Location Date Provider Diagnosis [facility] [address] [place], [place] [address] 11/19/2024 Provider Migration Vasomotor rhinitis J30.0 and Dysuria R30.0 [facility] [address] [place] [address] 05/30/2025 Nora McNees HFrEF (heart failure with reduced ejection fraction) I50.20 ; Routine medical exam Z00.00 ; Depression with anxiety F41.8 ; Essential hypertension I10 ; Visit for screening mammogram Z12.31 ; BMI 28.0-28.9,adult Z68.28 ; Encounter for immunization Z23 and Chronic rhinitis J31.0 [facility] [place] [address] [facility] [address] [place], [place] [address] 01/19/2025 Andres Baxter [facility] [address] [place] [address] 05/30/2025 Nora Preciado Vasomotor rhinitis J30.0 [facility] [address] [place] [address] 06/09/2025 Andres Baxter Assessments Encounter Date Diagnosis (ICD Code) Assessment Notes Treatment Notes Treatment Clinical Notes Section Notes 11/19/2024 Vasomotor rhinitis (ICD-10 - J30.0) 11/19/2024 Dysuria (ICD-10 - R30.0) 05/30/2025 Routine medical exam (ICD-10 - Z00.00) Mammogram due, will schedule C-scope UTD Immunizations UTD 05/30/2025 HFrEF (heart failure with reduced ejection fraction) (ICD-10 - I50.20) Euvolemic on exam. Continue meds as above. Keep FU with cardiology 05/30/2025 Vasomotor rhinitis (ICD-10 - J30.0) 05/30/2025 Depression with anxiety (ICD-10 - F41.8) At baseline on current regimen. No changes made today. Recommend adding exercise. Return precautions discussed 05/30/2025 Essential hypertension (ICD-10 - I10) Low blood pressure today in clinic, asymptomatic, decrease coreg. Keep FU with cardiology next month. Sooner return precautions discussed 05/30/2025 Visit for screening mammogram (ICD-10 - Z12.31) 05/30/2025 BMI 28.0-28.9,adult (ICD-10 - Z68.28) BMI acceptable, continue diet, exercise 05/30/2025 Encounter for immunization (ICD-10 - Z23) 05/30/2025 Chronic rhinitis (ICD-10 - J31.0) At baseline Plan Of Treatment Pending Test Test Name Order Date Mammogram : Bilateral 05/30/2025 H-TSH 06/07/2013 H-parietal cell antibodies for pernicous anemia 08/16/2013 M-Vitamin B12 11/15/2020 M-COVID PCR SINGLE RAPID 08/31/2020 COMPREHENSIVE METABOLIC PANEL ([id number]) Insurance Providers Payer Name Payer Address Payer Phone Subscriber Number Group Number Insured Name Patient Relationship to Insured Coverage Start Date Coverage End Date [facility] [address] [place] [address] [phone] [id number] Sarai Norris Self - patient is the insured Medications Administered Medication Instructions Date of Administration Dosage Notes Cyanocobalamin/B-12 Pt's Own Medication 08/16/2013 Cyanocobalamin/B-12 Pt's Own Medication 08/27/2013 Cyanocobalamin/B-12 Pt's Own Medication 12/03/2013 Kenalog 40mg 08/12/2017 40 mg Triamcinolone Acetonide 40mg Injection 07/22/2018 1 mL Triamcinolone Acetonide 40mg Injection 09/30/2019 1 mL Triamcinolone Acetonide 40mg Injection 07/09/2020 1 mL Triamcinolone Acetonide 40mg Injection 10/20/2020 1 mL Medical (General) History Medical History History ICD Code Anxiety Allergies, seasonal shingles Heart failure Stage 2 kidney disease Surgical History Surgery Date(Month/Year) wrist 2014 colonoscopy- repeat 2 years with extende d prep 10/2023 Heart cath 03/2022 Hospitalization History Reason Date(Month/Year) [facility]- Heart failure 03/2022
--- OUTSIDE RECORDS SUMMARY | 2025-06-20 06:48 | XMS_ITS | Clinical Summary ---
Author Organization [facility] Address [address] [id number] Care Team Providers Care Inside Sales Advertising Executive Name Role Phone Andres Baxter MD Primary Care Provider [phone] Allergies No known active allergies Medications Azelastine-Flu ticasone 137-50 MCG/ACT suspension 1 spray by Alternating Nares route 2 (Two) Times a Day. shake liquid 07/07/20 24 Active escitalopram (LEXAPRO) 20 MG tablet Take 1 tablet by mouth Daily. Active estradiol (ESTRACE) 1 MG tablet Take 1 tablet by mouth Daily. 08/24/19 25 Active levocetirizine (XYZAL) 5 MG tablet Take 1 tablet by mouth Every Evening. 09/20/19 25 Active Gallifrey 5 MG tablet Take 1 tablet by mouth Daily. 09/03/19 25 Active Singulair 10 MG tablet Take 1 tablet by mouth Every Night. Active Entresto 24-26 MG tablet Take 1 tablet by mouth Every 12 (Twelve) Hours. 180 tablet 1 12/27/19 25 Active spironolactone (ALDACTONE) 50 MG tablet TAKE 1 TABLET BY MOUTH DAILY 90 tablet 1 01/03/20 25 Active carvedilol (COREG) 6.25 MG tablet TAKE 1 TABLET BY MOUTH TWICE DAILY WITH MEALS 180 tablet 1 04/28/20 25 Active Ozempic, 2 MG/DOSE, 8 MG/3ML solution pen-injectorIn dications:Athe rosclerosis of [place] coronary artery of [place] heart without angina pectoris INJECT 2 MG UNDER THE SKIN ONCE WEEKLY ON THE SAME DAY EACH WEEK 9 mL 1 05/01/20 25 Active Jardiance 10 MG tablet tablet TAKE 1 TABLET BY MOUTH DAILY 90 tablet 05/23/20 25 Active rosuvastatin (CRESTOR) 40 MG tabletIndicati ons:Hyperlipid emia LDL goal <70 TAKE 1 TABLET BY MOUTH EVERY NIGHT 90 tablet 1 06/15/20 25 Active rosuvastatin (CRESTOR) 40 MG tabletIndicati ons:Hyperlipid emia LDL goal <70 Take 1 tablet by mouth Every Night. 90 tablet 1 12/17/19 25 025 Discontinued Jardiance 10 MG tablet tablet TAKE 1 TABLET BY MOUTH DAILY 90 tablet 02/24/20 25 025 Discontinued Active Problems No known active problems Encounters Date Type Department Care Team Description 06/15/2025 Refill [facility] CARDIOLOG[facility] [address] [place] [address] [address] [address] Chetan Templeton MD Med Refill 06/01/2025 Telephone [facility] CARDI[facility] [address] [place] [address] [address] [phone] ERES- ORDERS/ MEDICATION UPDATE 05/29/2025 Telephone [facility] CARDI[facility] [address] [place] [address] [address] [place] [phone] Chetan Templeton MD LAB ORDER REQUEST 05/23/2025 Refill [facility] CARDI[facility] [address] [place] [address] [address] [phone] Chetan Templeton MD Med Refill 05/01/2025 Refill [facility] C[facility] [address] [place] [address] [address] [phone] Chetan Templeton MD Med Refill 04/28/2025 Refill [facility] C[facility] [address] [place] [address] [address] [phone] Chetan Templeton MD Med Refill from Last 3 Months Family History Medical History Relation Name Comments Diabetes Father Diabetes Mother Relation Name Status Comments Father Mother Social History Tobacco Use Types Packs/Day Years Used Date Smoking Tobacco: Former Cigarettes Smokeless Tobacco: Never Tobacco Cessation:Counseling Given: Not Answered Alcohol Use Standard Drinks/Week Comments Yes 0 (1 standard drink = 0.6 oz pur e alcohol) CURRENT SOME DAY Comments Unknown Sex and Gender Information Value Date Recorded Sex Assigned at Female 12/16/2024 7:49 AM EDT Legal Sex Female 12:51 PM EST Gender Identity Not on file Sexual Orientation Straight 12/16/2024 7: 49 AM EDT Last Filed Vital Signs Vital Sign Reading Time Taken Comments Blood Pressure 104/64 12/23/2024 1:04 PM EDT Pulse 87 12/23/2024 1:04 PM EDT Temperature - - Respiratory Rate - - Oxygen Saturation - - Inhaled Oxygen Concentration - - Weight 74.8 kg (165 lb) 12/23/2024 1:04 PM EDT Height 160 cm (5' 3 ) 12/23/2024 1:04 PM EDT Body Mass Index 29.23 12/23/2024 1:04 PM EDT Plan of Treatment Upcoming Encounters Date Type Department Care Team (Late st Contact Info) Description 06/26/2025 9:30 AM EST Office Visit [facility] [address] [facility] [address] [place] [phone] Chetan Templeton MD [address] [facility] [address] [place] [address] Health Maintenance Due Date Last Done Comments Annual Gynecologic Pelvic an d Breast Exam 1970 Pneumococcal Vaccine 50+ (1 of 2 - PCV) 1989 TDAP/TD VACCINES (1 - Tdap) 1989 PAP SMEAR 1991 MAMMOGRAM 2010 COLOGUARD 2015 COLON CANCER SCREENING 5 YEA R SIGMOIDOSCOPY 2015 COLONOSCOPY 2015 [address]AL CANCER SCREENING 2015 CT COLONOGRAPHY 2015 FECAL OCCULT BLOOD TEST 2015 FIT Testing (1 year) 2015 ANNUAL PHYSICAL 09/06/2024 HEPATITIS C SCREENING 09/06/2024 INFLUENZA VACCINE 03/17/2025 04/28/2024, , 06/11/2021, Additional history exists LIPID PANEL 12/16/2025 12/16/2024 ZOSTER VACCINE Completed 05/31/2020, 03/28/2020 Procedures Procedure Name Priority Date/Time Associated Diagnosis Comments LIPID PANEL Routine 12/16/2024 1:17 PM EDT CKD (chronic kidney disease) stage 2, GFR 60-89 ml/min from Last 3 Months or Most Recently Relevant to Health Maintenance Results * Lipid Panel (12/16/2024 1:17 PM EDT) Blood Chetan Templeton MD LAB BLOOD ORDERABLES Final Resul t [facility] from Last 3 Months or Most Recently Relevant to Health Maintenance Insurance Care Teams Inside Sales Advertising Executive Relationship Specialty Start Date End Date Andres Baxter MD [address] [facility] [address] [place] [address] PCP - General Adolescent Medicine 09/23/24
--- OUTSIDE RECORDS SUMMARY | 2025-06-20 06:48 | XMS_ITS | Encounter Summary ---
Author Organization [facility] Address [address] [place] [address] Care Team Providers Care Field Auto Appraiser Name Role Phone Andres Baxter MD Primary Care Provider [phone] Reason for Visit * Reason Comments Med Refill Encounter Details Date Type Department Care Team (Late st Contact Info) Description 04/28/2025 Refill [facility] CARDIOLOGY [address] [facility] [address] [address] Chetan Templeton MD [address] [facility] [address] [place] [address] Med Refill Social History Tobacco Use Types [...] Telephone Encounter - Sneha Guzman MA - 04/28/2025 3:14 PM EDT Rx Refill Note Requested Prescriptions Pending Prescriptions Disp Refills carvedilol (COREG) 6.25 MG tablet [Pharmacy Med Name: CARVEDILOL 6.25MG TABLETS] 180 tablet 0 Sig: TAKE 1 TABLET BY MOUTH TWICE DAILY WITH MEALS Last office visit with prescribing clinician: 12/23/2024 Last telemedicine visit with prescribing clinician: Visit date not found Next office visit with prescribing clinician: 06/26/2025 Pharmacy Info Last Fill Date: Rx Written Date: Prescribed Qty: Additional Details from Pharmacy: Patient passed protocols per mehran. Sneha Guzman MA 04/28/25, 15:14 EDT documented in this encounter Plan of Treatment Upcoming Encounters Date Type Department Care Team (Late st Contact Info) Description 06/26/2025 9:30 AM EST Office Visit [facility] C[facility] [address] [facility] [address], [place] [address] Chetan Templeton MD [address] [facility] [address] [place] [address] documented as of this encounter Visit Diagnoses Not on filedocumented in this encounter Care Teams Field Auto Appraiser Relationship Specialty Start Date End Date Andres Baxter MD [address] [facility] [address] [place] [address] PCP - General Adolescent Medicine 09/23/24 documented as of this encounter
--- OUTSIDE RECORDS SUMMARY | 2025-06-20 06:48 | XMS_ITS ---
Author Organization Unknown ENCOUNTERS Encounter Performer Location Date Diagnosis Diagnosis Status Emergency [place] [address] [place] [address] [id number] XS Emergency Dedrick [facility]ley [address] [place] [address] [id number] STU Emergency [place] [address] [address] [place] [address] [id number] STU *Note: Encounters from your own facility or health system may be excluded. Allergies, Adverse Reactions, Alerts Allergen Type Severity Identification Date Medications Name Date Quantity Days Supplied [facility] Number
[2025-06-20 07:50] LABS: Hemoglobin A1C 5.2 % (4.0-6.0)
[2025-06-20 08:30] LABS: Albumin Level 4.8 g/dl (3.5-5.0)
[2025-06-20 08:31] LABS: Albumin Level 4.8 g/dl (3.5-5.0); Chloride 103 mmol/L (98-107); Potassium 4.1 mmoL/L (3.5-5.1); Sodium 141 mmol/L (136-145)
[2025-06-20 08:33] LABS: Alanine Aminotransferase 38 U/L (12-78); Alkaline Phosphatase 97 U/L (38-126); Aspartate Amino Transferase 38 U/L (14-36); Bilirubin,Direct 0.0 mg/dl (0.0-0.4); Bilirubin,Indirect 0.5 mg/dL (0.0-0.9); Bilirubin,Total 0.5 mg/dl (0.2-1.3); Bilirubin,Unconjugated 0.5 mg/dL (0.0-1.1); Cholesterol 145 mg/dl (140-200); Total Protein,Serum 6.9 g/dl (6.3-8.2); Triglycerides 129 mg/dl (30-150)
[2025-06-20 08:34] LABS: HDL Cholesterol 50 mg/dl (40-60)
[2025-06-20 08:34] LABS: Alanine Aminotransferase 37 U/L (12-78); Albumin/Globulin Ratio 2.3 (1.1-1.8); Alkaline Phosphatase 96 U/L (38-126); Anion Gap 11.1 mEq/L (5-15); Aspartate Amino Transferase 38 U/L (14-36); Bilirubin,Total 0.6 mg/dl (0.2-1.3); Blood Urea Nitrogen 11 mg/dl (7-17); Calcium 8.9 mg/dl (8.4-10.2); Carbon Dioxide 31 mmol/L (22.0-30.0); Creatinine,Serum 0.90 mg/dl (0.52-1.04); Estimated Glomerular Filt Rate 65 ml/min (>60); GFR (African American) 79 ML/MIN (>60); Globulin 2.1 g/dL (1.3-3.2); Glucose 98 mg/dl (74-100); Total Protein,Serum 6.9 g/dl (6.3-8.2)
[2025-06-20 08:43] LABS: NT Pro Brain Natriuretic Pep. 136 pg/mL (0-125)
[2025-06-20 09:04] LABS: C-Reactive Protein 3.6 mg/L (0-4)
== END 2025-06-20 23:59 | disposition home or self-care (01) ==
LOC: LAB 06:46
PROVIDERS: Nurse Practitioner Family; PCP Internal Medicine Adolescent Medicine; Visit Provider Internal Medicine Interventional Cardiology
DX: I50.22 Chronic systolic (congestive) heart failure (principal); N18.2 Chronic kidney disease, stage 2 (mild); E78.5 Hyperlipidemia, unspecified; R73.03 Prediabetes
CPT/HCPCS: 36415; 80053; 80061; 80076; 82043; 82570; 83036; 83695; 83880; 86140

== ENCOUNTER 2025-07-10 13:25 | Outpatient (CLI) | payer BC, SELFPAY ==
--- OUTSIDE RECORDS SUMMARY | 2025-06-26 09:30 | XMS_ITS | Encounter Summary ---
Author Organization [facility] Address [address] [place] [address] Care Team Providers Care Bone Worker Name Role Phone Andres Baxter MD Primary Care Provider [phone] Reason for Visit * Reason Comments Cardiomyopathy Encounter Details Date Type Department Care Team (Latest Contact Info) Description 06/26/2025 9:30 AM EST Office Visit [facility] CARDIOLOGY [address] [facility] [address], [place] [address] Chetan Templeton MD [address] [place] [address] Dilated cardiomyopathy (Primary Dx); Chronic left ventricular systolic heart failure; Prediabetes; Hyperlipidemia LDL goal <100; Atherosclerosis of eek coronary artery of eek heart without angina pectoris; Hyperlipidemia LDL goal [...] PCP: Andres Baxter MD Date: 12/23/2024 Department: [facility] CARDIOLOGY [address] [facility] [address] [facility] [address] Chief Complaint: Here for follow-up Problem list: [...] 70 Followup in 6 months. Atherosclerosis of eek coronary artery of eek heart without angina pectoris Orders: Semaglutide, 2 MG/DOSE, (Ozempic, 2 MG/DOSE,) 8 MG/3ML solution pen-injector; Inject 2 mg under theskin into the appropriate area as directed 1 (One) Time Per Week. Hyperlipidemia LDL goal <70 Orders: rosuvastatin (CRESTOR) 40 MG tablet; Take 1 tablet by mouth Daily. Follow Up Return in about 5 weeks (around 07/31/2025). [facility] Cardiology documented in this encounter Plan of Treatment Upcoming Encounters Date Type Department Care Team (Late st Contact Info) Description 08/02/2025 11:00 AM EST Office Visit [facility] CARDIOLOGY [address] [facility] [address], [place] [address] Chetan Templeton MD [address] [place] [address] Scheduled Orders Name Type Priority Associated Diagnoses [...] <100 Other and unspecified hyperlipidemia Atherosclerosis of eek coronary artery of eek heart without angina pectoris Hyperlipidemia LDL goal <70 Other and unspecified hyperlipidemia documented in this encounter Care Teams Bone Worker Relationship Specialty Start Date End Date Andres Baxter MD [address] [facility] [address] [place] [address] PCP - General Adolescent Medicine 09/23/24 documented as of this encounter
--- NOTE | 2025-07-10 13:29 | MM_ITS ---
PROCEDURE INFORMATION: Exam: MG Bilateral Screening 3D Mammography Exam date and time: 07/10/2025 1:30 PM Age: 55 years old Clinical indication: Screening examination TECHNIQUE: Imaging protocol: Bilateral Screening tomosynthesis and 2D mammography including computer-aided detection (CAD) when performed. COMPARISON: 1. MG MM DIG SCREENING MAMM BI W/CAD 10/26/2023 11:06 AM 2. MG MM DIG SCREENING MAMM BI W/CAD 03/07/2022 7:51 AM FINDINGS: MAMMOGRAPHY: Breast composition: The breasts are heterogeneously dense, which may obscure small masses. Mass: No suspicious masses. Architectural distortion: None. Calcifications: No suspicious calcifications. Asymmetric density: None. Skin thickening: None. Axillary adenopathy: None. IMPRESSION: No mammographic evidence of malignancy. Annual screening is recommended unless otherwise clinically indicated. ASSESSMENT: BI-RADS Category 1: Negative.
--- OUTSIDE RECORDS SUMMARY | 2025-07-10 13:41 | XMS_ITS | Encounter Summary ---
Author Organization [facility] Address [address] [place] [address] Care Team Providers Care Blue Line Trimmer Name Role Phone Andres Sow MD Primary Care Provider [phone] Reason for Visit * Reason Onset Date Comments DR. CASTRO- ORDERS/ MEDICATION UPDATE 06/01/2025 Encounter Details Date Type Department Care Team (Late st Contact Info) Description 06/01/2025 Telephone [facility] CARDIOLOGY [address] [facility] [address] [id number] Chetan Castro MD [address] [facility] [address] [place] [address] DR. CASTRO- ORDERS/ MEDICATION UPDATE Social History [...] Norris Relationship: Self Best call back number: [phone] What orders are you requesting (i.e. lab or imaging): LABS In what timeframe would the patient need to come in: KRYSTAL Where will you receive your lab/imaging services: DR. SOW'S OFFICE FAX: [phone] Additional notes: PATIENT IS CALLING TO HAVE LAB ORDERS FAXED OVER TO DR. SOW'S OFFICE AT [phone]. PATIENT WILL BE IN HIS OFFICE ON 06-19-25. PATIENT ALSO WAS SEEN BY [facility] ON 05-29-[address] SOW'S OFFICE AND HER BP WAS LOW AND AGAIN LATER SAME DAY BY [facility] AND BP WAS LOW. [facility] AT DR. SOW'S OFFICE LOWERED PATIENTS DOSAGE ON HER CARVEDILOL FROM 6.25 MG TO 3.25 MG 2TIMES DAILY. documented in this encounter Plan of Treatment Upcoming Encounters Date Type Department Care Team (Late st Contact Info) Description 08/02/2025 11:00 AM EST Office Visit [facility] CARDIOLOGY [address] [facility] [address] [place] [address] Chetan Castro MD [address] [facility] [address] [place] [address] documented as of this encounter Visit Diagnoses Not on filedocumented in this encounter Care Teams Blue Line Trimmer Relationship Specialty Start Date End Date Andres Sow MD [address] [facility] [address] [facility] [address] [place] [address] PCP - General Adolescent Medicine 09/23/24 documented as of this encounter
--- OUTSIDE RECORDS SUMMARY | 2025-07-10 13:41 | XMS_ITS | Encounter Summary ---
Author Organization [facility] Address [address] [place] [address] Care Team Providers Care Lead Quality Control Technician Name Role Phone Andres Baxter MD Primary Care Provider [phone] Encounter Details Date Type Department Care Team (Late st Contact Info) Description 06/26/2025 Patient rounding ([facility] only) [facility] CARDIOLOGY [address] [facility] [address] [address] Chetan Templeton MD [address] [facility] [address] [place] [address] Social History Tobacco Use Types Packs/Day Years [...] AM EDT documented as of this encounter Progress Notes * Razia Dorman RegSched Rep - 06/26/2025 10:48 AM EST My name is Mylene Love, and I am the Inclusion Manager for [facility] Cardiology [place]. I would like to thank you for being a loyal patient. If you do not mind, I would like to ask you questions about your recent visit with us. Please feel free to reply if you wish to provide us with feedback on your visit with our practice. First, could you tell me what went well with your recent visit? Secondly, we are always looking for ways to make our patients' experiences even better. Do you haveany recommendations on ways we may improve? Finally, overall were you satisfied with your visit with us as a [facility] facility? Over the next few days, you will be receiving a Patient Experience Survey. Please consider taking the survey, as it helps [facility] in improving their patient care. Thank you for taking the time to answer our questions today. I hope you have a good day. documented in this encounter Plan of Treatment Upcoming Encounters Date Type Department Care Team (Late st Contact Info) Description 08/02/2025 11:00 AM EST Office Visit [facility] CARDIOLOGY [address] [facility] [address], [place] [address] Chetan Templeton MD [address] [facility] [address] [place] [address] documented as of this encounter Visit Diagnoses Not on filedocumented in this encounter Care Teams Lead Quality Control Technician Relationship Specialty Start Date End Date Andres Baxter MD [address] [facility] [address] [facility] [address] [place] [address] PCP - General Adolescent Medicine 09/23/24 documented as of this encounter
--- OUTSIDE RECORDS SUMMARY | 2025-07-10 13:41 | XMS_ITS | Encounter Summary ---
Author Organization [facility] Address [address] [place] [address] Care Team Providers Care Lead Front Desk Agent Name Role Phone Andres Baxter MD Primary Care Provider [phone] Reason for Visit * Reason Comments Med Refill Encounter Details Date Type Department Care Team (Late st Contact Info) Description 06/15/2025 Refill [facility] CARDIOLOGY [address] [facility] [address] [address] Chetan Templeton MD [address] [facility] [address] [place] [address] Med Refill Social History Tobacco Use Types [...] Description 08/02/2025 11:00 AM EST Office Visit [facility] CARDIOLOGY [address] [facility] [address] [address] Chetan Templeton MD [address] [facility] [address] [place] [address] documented as of this encounter Visit Diagnoses Diagnosis Hyperlipidemia LDL goal <70 Other and unspecified hyperlipidemia documented in this encounter Care Teams Lead Front Desk Agent Relationship Specialty Start Date End Date Andres Baxter MD [address] [facility] [address] [place] [address] PCP - General Adolescent Medicine 09/23/24 documented as of this encounter
--- OUTSIDE RECORDS SUMMARY | 2025-07-10 13:42 | XMS_ITS | Encounter Summary ---
Author Organization [facility] Address [address] [place] [address] Care Team Providers Care Soc Analyst Name Role Phone Andres Sow MD Primary Care Provider [phone] Reason for Visit * Reason Onset Date Comments LAB ORDER REQUEST 05/29/2025 Encounter Details Date Type Department Care Team (Late st Contact Info) Description 05/29/[address] [facility] CARDIOLOGY [address] [place] [phone] Chetan Castro MD [address] [facility] [address] [place] [address] LAB ORDER REQUEST Social History Tobacco Use [...] the office a call back. Anyone from [place] station can take call or give message. * Telephone Encounter - Rebeca Panda MA - 05/29/2025 3:45 PM EDT Attempted call to patient, left message on machine. * Telephone Encounter - Dedrick Bonilla RegSched Rep - 05/29/2025 2:19 PM EDT Caller: Sarai Norris Relationship: Self Best call back number: [phone] What is the best time to reach [...] Description 08/02/2025 11:00 AM EST Office Visit [facility] CARDIOLOGY [address] [facility] [address], [place] [address] Chetan Castro MD [address] [facility] [address] [place] [address] documented as of this encounter Visit Diagnoses Not on filedocumented in this encounter Care Teams Soc Analyst Relationship Specialty Start Date End Date Andres Sow MD [address] [place] [facility] [address] [place] [address] PCP - General Adolescent Medicine 09/23/24 documented as of this encounter
--- OUTSIDE RECORDS SUMMARY | 2025-07-10 13:42 | XMS_ITS | Clinical Summary ---
Author Organization [facility] Address [address] [place] [address] Care Team Providers Care Customer Support Assistant Name Role Phone Andres Baxter MD Primary Care Provider [phone] Allergies Active Allergy Reactions Criticality Noted Date Comments Sulfamethoxazole-Trimethop rim Rash Low 06/26/2025 Patient reports she had a reaction to it back in 2000 Medications Azelastine-Flu ticasone 137-50 MCG/ACT suspension 1 [...] 1 tablet by mouth Every Night. Active carvedilol (COREG) 6.25 MG tablet TAKE 1 TABLET BY MOUTH TWICE DAILY WITH MEALS 180 tablet 1 04/28/20 25 Active Additional Information Patient not taking.Reported on 06/26/2025 Jardiance 10 MG tablet tablet TAKE 1 TABLET BY MOUTH DAILY 90 tablet 05/23/20 25 Active Finerenone (Kerendia) 20 MG tabletIndicati ons:Chronic left ventricular systolic heart failure Take 1 tablet by mouth Daily. 90 tablet 1 06/26/20 25 Active estradiol (ESTRACE) 2 MG tablet Take 1 tablet by mouth Daily. 06/23/20 25 Active Progesterone (PROMETRIUM) 100 MG capsule Take 1 capsule by mouth Daily. 06/22/20 25 Active carvedilol (COREG) 3.125 MG tablet Take 1 tablet by mouth 2 (Two) Times a Day With Meals. Active Sodium Hyaluronate, oral, (HYALURONIC ACID PO) Take 1,000 mg by mouth Daily. Active Cholecalcifero l (Vitamin D-3) 125 MCG (5000 UT) tablet Take 1 tablet by mouth Daily. Active ASTAXANTHIN PO Take 12 mg by mouth Daily. Active sacubitril-ac sartan (Entresto) 24-26 MG tablet Take 1 tablet by mouth Every 12 (Twelve) Hours. 180 tablet 1 06/26/20 25 Active Semaglutide, 2 MG/DOSE, (Ozempic, 2 MG/DOSE,) 8 MG/3ML solution pen-injectorIn dications:Athe rosclerosis of [place] coronary artery of [place] heart without angina pectoris Inject 2 mg under the skin into the appropriate area as directed 1 (One) Time Per Week. 9 mL 1 06/26/20 25 Active rosuvastatin (CRESTOR) 40 MG tabletIndicati ons:Hyperlipid emia LDL goal <70 Take 1 tablet by mouth Daily. 90 tablet 1 06/26/20 25 Active rosuvastatin (CRESTOR) 40 MG tabletIndicati ons:Hyperlipid emia LDL goal <70 Take 1 tablet by mouth Every Night. 90 tablet 1 12/17/19 25 025 Discontinued Entresto 24-26 MG tablet Take 1 tablet by mouth Every 12 (Twelve) Hours. 180 tablet 1 12/27/19 25 025 Discontinued(R eorder) spironolactone (ALDACTONE) 50 MG tablet TAKE 1 TABLET BY MOUTH DAILY 90 tablet 1 01/03/20 25 025 Discontinued(* Therapy completed) Ozempic, 2 MG/DOSE, 8 MG/3ML solution pen-injectorIn dications:Athe rosclerosis of [place] coronary artery of [place] heart without angina pectoris INJECT 2 MG UNDER THE SKIN ONCE WEEKLY ON THE SAME DAY EACH WEEK 9 mL 1 05/01/20 25 025 Discontinued(R eorder) rosuvastatin (CRESTOR) 40 MG tabletIndicati ons:Hyperlipid emia LDL goal <70 TAKE 1 TABLET BY MOUTH EVERY NIGHT 90 tablet 1 06/15/20 25 025 Discontinued(R eorder) Active Problems No known active problems Encounters Date Type Department Care Team Description 06/26/2025 9:30 AM EST Office Visit [facility] [address] [place] [address] [address] [place] [phone] Chetan Templeton MD Dilated cardiomyopathy (Primary Dx); Chronic left ventricular systolic heart failure; Prediabetes; Hyperlipidemia LDL goal <100; Atherosclerosis of [place] coronary artery of [place] heart without angina pectoris; Hyperlipidemia LDL goal <70 06/26/2025 Patient rounding ([facility] only) [facility] [address] [place] [address] [address] [phone] Chetan Templeton MD 06/26/2025 Travel 06/15/2025 Refill [facility] [address] [place] [address] [place] [address] Chetan Templeton MD Med Refill 06/01/2025 Telephone [facility] [address] [place] [address] [address] [place] [address] ERES- ORDERS/ MEDICATION UPDATE 05/29/2025 Telephone [facility] [address] [place] [address] [address] [place] [address] Chetan Templeton MD LAB ORDER REQUEST 05/23/2025 Refill [facility] [address] [place] [address] [address] [address] Chetan Templeton MD Med Refill 05/01/2025 Refill [facility] [address] [place] [address] [address] [place] [address] Chetan Templeton MD Med Refill 04/28/2025 Refill [facility] [address] [place] [address] [address] [address] Chetan Templeton MD Med Refill from Last [...] Mass Index 28.31 06/26/2025 9:33 AM EST Plan of Treatment Upcoming Encounters Date Type Department Care Team (Late st Contact Info) Description 08/02/2025 11:00 AM EST Office Visit [facility] [address] [place] [phone] Chetan Templeton MD [address] [place] [address] [address] [place] [address] Health Maintenance Due Date Last Done Comments [...] Procedure Name Priority Date/Time Associated Diagnosis Comments LIPOPROTEIN A (LPA) Routine 06/20/2025 Hyperlipidemia LDL goal <100 HEMOGLOBIN A1C Routine 06/20/2025 Prediabetes HEPATIC FUNCTION PANEL Routine 06/20/2025 Hyperlipidemia LDL goal <100 MICROALBUMIN / CREATININE URINE RATIO Routine 06/20/2025 Prediabetes LIPID PANEL Routine 12/16/2024 1:17 PM EDT CKD (chronic kidney disease) stage 2, GFR 60-89 ml/min from Last 3 Months or Most Recently Relevant to Health Maintenance Results * Microalbumin / Creatinine Urine Ratio - Urine, Clean Catch (06/20/2025) Urine Urine specimen obtained by clean catch procedure / Unknown us Chetan Templeton MD URINE ORDERABLES Final Result Performing Organization Address [facility] Co de Phone Number [facility] * Lipoprotein A (LPA) (06/20/2025) Blood us Chetan Templeton MD LAB BLOOD ORDERABLES Final Resul t Performing Organization Address [facility] Co de Phone Number [facility] * Hemoglobin A1c (06/20/2025) Blood us Chetan Templeton MD LAB BLOOD ORDERABLES Final Resul t Performing Organization Address [facility] Co de Phone Number [facility] * Hepatic Function Panel (06/20/2025) Blood us Chetan Templeton MD LAB BLOOD ORDERABLES Final Resul t [facility] * Lipid Panel (12/16/2024 1:17 PM EDT) Blood us Chetan Templeton MD LAB BLOOD ORDERABLES Final Resul t [facility] from Last 3 Months or Most Recently Relevant to Health Maintenance Insurance Care Teams Customer Support Assistant Relationship Specialty Start Date End Date Andres Baxter MD [address] [facility] [address] [place] [address] PCP - General Adolescent Medicine 09/23/24
--- OUTSIDE RECORDS SUMMARY | 2025-07-10 13:42 | XMS_ITS | Encounter Summary ---
Author Organization [facility] Address [address] [place] [address] Care Team Providers Care Lumber Carrier Name Role Phone Andres Baxter MD Primary Care Provider [phone] Encounter Details Date Type Department Care Team (Latest Contact Info) Description 06/26/2025 Travel Social History Tobacco Use Types Packs/Day Years [...] AM EDT documented as of this encounter Plan of Treatment Upcoming Encounters Date Type Department Care Team (Late st Contact Info) Description 08/02/2025 11:00 AM EST Office Visit [facility] [address] [facility] [address] [place] [address] Chetan Templeton MD [address] [facility] [address] [place] [phone] documented as of this encounter Visit Diagnoses Not on filedocumented in this encounter Care Teams Lumber Carrier Relationship Specialty Start Date End Date Andres Baxter MD [address] [facility] [address] [place] [address] PCP - General Adolescent Medicine 09/23/24 documented as of this encounter
--- OUTSIDE RECORDS SUMMARY | 2025-07-10 13:42 | XMS_ITS | Encounter Summary ---
Author Organization [facility] Address [address] [place] [address] Care Team Providers Care Dispatcher Service Name Role Phone Andres Baxter MD Primary Care Provider [phone] Reason for Visit * Reason Comments Med Refill Encounter Details Date Type Department Care Team (Late st Contact Info) Description 05/23/2025 Refill [facility] [address] [facility] [address] [address] Chetan Templeton MD [address] [facility] [address] [place] [address] Med Refill Social History Tobacco Use Types [...] Description 08/02/2025 11:00 AM EST Office Visit [facility] [address] [facility] [address] [phone] Chetan Templeton MD [address] [facility] [address] [place] [address] documented as of this encounter Visit Diagnoses Not on filedocumented in this encounter Care Teams Dispatcher Service Relationship Specialty Start Date End Date Andres Baxter MD [address] [facility] [address] [place] [address] PCP - General Adolescent Medicine 09/23/24 documented as of this encounter
== END 2025-07-10 23:59 | disposition home or self-care (01) ==
PROVIDERS: PCP Internal Medicine Adolescent Medicine; Visit Provider Nurse Practitioner Family
DX: Z12.31 Encounter for screening mammogram for malignant neoplasm of breast (principal); R92.333 Mammographic heterogeneous density, bilateral breasts
CPT/HCPCS: 77063; 77067

== ENCOUNTER 2025-07-26 07:11 | Outpatient (CLI) | payer BC, SELFPAY ==
--- OUTSIDE RECORDS SUMMARY | 2024-02-19 11:45 | XMS_ITS ---
Author Organization [facility] D [facility] Address [address] [place] [address] Care Team Providers Care River Captain Name Role Phone Andres Baxter Primary Care Provider Yolis Amaro [phone] REASON FOR VISIT Sinus Infection Encounters Encounter Location Date Provider Diagnosis [address] [address] 02/19/2024 Yolis Amaro Plan Of Treatment No Information Progress Notes * ELLE, SaraiDOB:1970 (55 yo F)Acc No.[id number]:02/19/2024 Progress Notes Patient: Sarai HANSEN Provider: MARIA LUZ Luong :1970 A ge:53 Y S ex:Female Date:02/19/2024 Address:[address] [id number] Pcp:Andres Baxter Subjective: * Chief Complaints: * 1 . Sinus Infection. * Medical History: Objective: * Vitals: Assessment: Plan: * Treatment: * * Electronic signature of Sharlene Amaro PA-C on 07/26/2025 at 07:15 AM EST Sign off status: Pending * Provider: MARIA LUZ Luong Date: 0 02/19/2024 Generated for Charu sandoval/Colt/Demetriaitting on: 1 09/26/2024 07:15 AM EST
--- OUTSIDE RECORDS SUMMARY | 2024-11-19 16:30 | XMS_ITS ---
Author Organization [facility] PE D C[facility] Address [address] [place] [address] Care Team Providers Care Councilperson Name Role Phone Andres Baxter Primary Care Provider Migration, Provider Unavailable Unavailable Allergies Allergen (clinical drug ingredient) Drug/Non Drug Allergy documented on EMR Reaction Allergy Type Onset Date Status sulfamethoxazole / trimethoprim Bactrim DS rash Drug Allergy Active REASON FOR VISIT [facility] Encounter Medications Medication SIG (Take, Route, [...] review and pick correct strength-formulat ion from [facility] options. If intended option is not shown, [...] Active Encounters Encounter Location Date Provider Diagnosis [facility] [address] [facility] [address] [place] [address] 11/19/2024 Provider Migration Vasomotor rhinitis J30.0 and [...] *Please review and pick correct strength-formulation from [facility] options. If intended option is not shown, discontinue and re-order from Quick Search* Escitalopram Oxalate 20 MG 1 tab(s) orally once a day; Duration: 90 days Progress Notes * Sarai ALMEIDADOB:1970 (55 yo F)Acc No.[id number]:11/19/2024 Patient: Sarai HANSEN Provider: Anish degroot Migration :1970 A ge:54 Y S ex:Female Date:11/19/2024 Address:[address], [place], [id number] Pcp:Andres Batxer Subjective: * Chief Complaints: * 1 . [...] *Please review and pick correct strength-formulation from [facility] options. If intended option is not shown, discontinue and re-order from Quick Search*. 3. O thers Start Singulair Tablet, 10 MG, 1 tab(s), orally, once a day (in the evening), 30 day(s), 30, Refills 3; S tart Escitalopram Oxalate Tablet, 20 MG, 1 tab(s), orally, once a day, 90 days, 90, Refills 0. * * Electronic signature of Prov ider Migration on 07/26/2025 at 07:15 AM EST Sign off status: Pending * Provider: Anish degroot Migration Date: 0 11/19/2024 Generated for Charu sandoval/Colt/Annabella on: 1 09/26/2024 07:15 AM EST
--- OUTSIDE RECORDS SUMMARY | 2025-06-26 09:30 | XMS_ITS | Encounter Summary ---
Author Organization [facility] Address [address] [place] [address] Care Team Providers Care Orthopedic Nurse Name Role Phone Andres Baxter MD Primary Care Provider [phone] Reason for Visit * Reason Comments Cardiomyopathy Encounter Details Date Type Department Care Team (Latest Contact Info) Description 06/26/2025 9:30 AM EST Office Visit [facility] CARDIOLOGY [address] [facility] [address] [address] Chetan Templeton MD [address] [facility] [address] [place] [address] Dilated cardiomyopathy (Primary Dx); Chronic left ventricular systolic heart failure; Prediabetes; Hyperlipidemia LDL goal <100; Atherosclerosis of [place] coronary artery of [place] heart without angina pectoris; Hyperlipidemia LDL goal <70 Social History Tobacco Use Types Packs/Day Years Used Date Smoking Tobacco: Former Cigarettes Smokeless Tobacco: Never Comments:I never was a heavy smoker, smokes socially. Hasn't smoked in over a decade. Alcohol Use Standard Drinks/Week Comments Not Currently 0 (1 standard drink = 0.6 oz pur e alcohol) Comments Unknown Sex and Gender Information Value Date Recorded Sex Assigned at Female 12/16/2024 7:49 AM EDT Legal Sex Female 12:51 PM EST Gender Identity Not on file Sexual Orientation Straight 12/16/2024 7: 49 AM EDT documented as of this encounter Last Filed Vital Signs Vital Sign Reading Time Taken Comments Blood Pressure 87/63 06/26/2025 9:33 AM EST Pulse 88 06/26/2025 9:33 AM EST Temperature - - Respiratory Rate - - Oxygen Saturation - - Inhaled Oxygen Concentration - - Weight 72.5 kg (159 lb 12.8 oz) 06/26/2025 9:33 AM EST Height 160 cm (5' 3 ) 06/26/2025 9:33 AM EST Body Mass Index 28.31 06/26/2025 9:33 AM EST documented in this encounter Progress Notes * Razia Burton RegSched Rep - 06/26/2025 9:30 AM ESTAddended by: RAZIA BURTON on: 06/26/2025 10:29 AM Modules accepted: Orders * Chetan Templeton MD - 06/26/2025 9:30 AM EST Images from the original note were not included. Cardiology Established Patient Note Name: Sarai Norris : 1970 PCP: Andres Baxter MD Date: 12/23/2024 Department: [facility] CARDIOLOGY [address] [facility] [address] [facility] [address] Chief Complaint: Here for follow-up Problem list: Nonischemic dilated cardiomyopathy Chronic left systolic heart failure Focused echo 06/20/2022 EF 20 to 25%, mild LVH Mild 10/02/2022 EF 50.5% Hyperlipidemia Hypertension CKD stage IIa Renal ultrasound 01/26/2023 no stenosis Prediabetes Subjective History of Present Illness Sarai Norris is a 55 y.o. female who presents today for follow-up. Overall she is doing very well having no chest pain chest discomfort or shortness of breath. Reports no significant imitations to her activity. She is a schoolteacher and during the summer she is planning on increasing her exercise significantly. Labs- File Link Current Outpatient Medications Medication Instructions ASTAXANTHIN PO 12 mg, Daily Azelastine-Fluticasone 137-50 MCG/ACT suspension 1 spray, 2 Times Daily carvedilol (COREG) 6.25 mg, Oral, 2 Times Daily With Meals carvedilol (COREG) 3.125 mg, 2 Times Daily With Meals escitalopram (LEXAPRO) 20 mg, Daily estradiol (ESTRACE) 1 MG tablet 1 tablet, Daily estradiol (ESTRACE) 2 MG tablet 1 tablet, Daily Gallifrey 5 MG tablet 1 tablet, Daily Jardiance 10 mg, Oral, Daily Kerendia 20 mg, Oral, Daily levocetirizine (XYZAL) 5 mg, Every Evening Ozempic (2 MG/DOSE) 2 mg, Subcutaneous, Weekly Progesterone (PROMETRIUM) 100 MG capsule 1 capsule, Daily rosuvastatin (CRESTOR) 40 mg, Oral, Daily sacubitril-valsartan (Entresto) 24-26 MG tablet 1 tablet, Oral, Every 12 Hours Scheduled Singulair 10 mg, Nightly Sodium Hyaluronate, oral, (HYALURONIC ACID PO) 1,000 mg, Daily Vitamin D-3 125 mcg, Daily Recent labs as below reviewed- Good I think we will get Objective Vital Signs: BP (!) 87/63 (BP Location: Left arm, Patient Position: Sitting) Pulse 88 Ht 160 cm (63 ) Wt 72.5 kg (159 lb 12.8 oz) BMI 28.31 kg/m?? Estimated body mass index is 28.31 kg/m?? as calculated from the following: Height as of this encounter: 160 cm (63 ). Weight as of this encounter: 72.5 kg (159 lb 12.8 oz). Cardiovascular: PMI at left midclavicular line. Normal rate. Regular rhythm. Normal S1. Normal S2. Murmurs: There is a grade 2/6 high frequency blowing holosystolic murmur at the apex. No gallop. No click. No rub. Pulses: Intact distal pulses. Edema: Peripheral edema absent. 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 Heart failure is stable. NYHA Class 2 Continue current treatment regimen. Heart failure will be reassessed 6 months Change Aldactone to Kerendia for heart failure preserved ejection fraction. BMP in 4 weeks Chronic left ventricular systolic heart failure Stable. As above. Orders: Finerenone (Kerendia) 20 MG tablet; Take 1 tablet by mouth Daily. Basic Metabolic Panel; Future proBNP; Future Prediabetes Needs A1c. Hyperlipidemia LDL goal <100 Lipid abnormalities are stable Plan: Continue same medication/s without change. Discussed medication dosage, use, side effects, and goals of treatment in detail. Counseled patient on lifestyle modifications to help control hyperlipidemia. Patient Treatment Goals: LDL goal is less than 70 Followup in 6 months. Atherosclerosis of [place] coronary artery of [place] heart without angina pectoris Orders: Semaglutide, 2 MG/DOSE, (Ozempic, 2 MG/DOSE,) 8 MG/3ML solution pen-injector; Inject 2 mg under theskin into the appropriate area as directed 1 (One) Time Per Week. Hyperlipidemia LDL goal <70 Orders: rosuvastatin (CRESTOR) 40 MG tablet; Take 1 tablet by mouth Daily. Follow Up Return in about 5 weeks (around 07/31/2025). [facility] Cardiology documented in this encounter Plan of Treatment Upcoming Encounters Date Type Department Care Team (Late st Contact Info) Description 08/02/2025 11:00 AM EST Office Visit [facility] CARDIOLOGY [address] [facility] [address] [address] Chetan Templeton MD [address] [facility] [address] [place] [address] Scheduled Orders Name Type Priority Associated Diagnoses Orde r Schedule proBNP Lab Routine Chronic left ventricular systolic heart failure Expected: 06/26/2026 (Approximate), Expires: 12/23/2026 Basic Metabolic Panel Lab Routine Chronic left ventricular systolic heart failure Expected: 06/26/2026 (Approximate), Expires: 12/23/2026 documented as of this encounter Visit Diagnoses Diagnosis Dilated cardiomyopathy- Primary Other primary cardiomyopathies Chronic left ventricular systolic heart failure Prediabetes Other abnormal glucose Hyperlipidemia LDL goal <100 Other and unspecified hyperlipidemia Atherosclerosis of [place] coronary artery of [place] heart without angina pectoris Hyperlipidemia LDL goal <70 Other and unspecified hyperlipidemia documented in this encounter Care Teams Orthopedic Nurse Relationship Specialty Start Date End Date Andres Baxter MD [address] [facility] [address] [facility] [place] [place] [address] PCP - General Adolescent Medicine 09/23/24 documented as of this encounter
--- OUTSIDE RECORDS SUMMARY | 2025-07-26 07:15 | XMS_ITS | Encounter Summary ---
Author Organization [facility] Address [address] [place] [address] Care Team Providers Care Biology Internship Name Role Phone Andres Sow MD Primary Care Provider [phone] Reason for Visit * Reason Onset Date Comments DR. CASTRO- ORDERS/ MEDICATION UPDATE 06/01/2025 Encounter Details Date Type Department Care Team (Late st Contact Info) Description 06/01/2025 Telephone [facility] [address] [facility] [address], [place] [address] Chetan Castro MD [address] [facility] [address] [place] [address] DR. CASTRO- ORDERS/ MEDICATION UPDATE Social History [...] Norris Relationship: Self Best call back number: [phone] What orders are you requesting (i.e. lab or imaging): LABS In what timeframe would the patient need to come in: KRYSTAL Where will you receive your lab/imaging services: DR. SOW'S OFFICE FAX: [phone] Additional notes: PATIENT IS CALLING TO HAVE LAB ORDERS FAXED OVER TO DR. SOW'S OFFICE AT [phone]. PATIENT WILL BE IN HIS OFFICE ON 06-19-25. PATIENT ALSO WAS SEEN BY [facility] ON 05-29-[address] SOW'S OFFICE AND HER BP WAS LOW AND AGAIN LATER SAME DAY BY MEDICARE NURSE AND BP WAS LOW. [facility] AT DR. SOW'S OFFICE LOWERED PATIENTS DOSAGE ON HER CARVEDILOL FROM 6.25 MG TO 3.25 MG 2TIMES DAILY. documented in this encounter Plan of Treatment Upcoming Encounters Date Type Department Care Team (Late st Contact Info) Description 08/02/2025 11:00 AM EST Office Visit [facility] [address] [facility] [address] [place] [address] Chetan Castro MD [address] [facility] [address] [place] [address] documented as of this encounter Visit Diagnoses Not on filedocumented in this encounter Care Teams Biology Internship Relationship Specialty Start Date End Date Andres Sow MD [address] [facility] [address] [facility] [address] [place] [address] PCP - General Adolescent Medicine 09/23/24 documented as of this encounter
--- OUTSIDE RECORDS SUMMARY | 2025-07-26 07:15 | XMS_ITS | Patient Health Record ---
Author Organization [facility] Address [address] [place] [address] [place] [address] Care Team Providers Care Trial Mgr Name Role Phone Edgardo Baxterhen Primary Care Provider [phone] Nora Preciado Unavailable [phone] Migration, Provider Unavailable Unavailable Allergies Allergen (clinical drug ingredient) Drug/Non Drug Allergy documented on EMR Reaction Allergy Type Onset Date Status sulfamethoxazole / trimethoprim Bactrim DS rash Drug Allergy Active Results Component Value Reference Range Notes Mammogram : Bilateral Reviewed date:07/20/2025 01:56:40 PM Interpretation: Performing Lab: Notes/Report: M-Comprehensive Metabolic Pa dara Reviewed date:07/19/2025 09:51:15 AM Interpretation: Performing Lab: Notes/Report: SHARE RESULTS WITH DR DEE CASTRO NA 141 136-145 mmol/L K 4.1 3.5-5.1 mmoL/L CL 103 98-107 mmol/L CO2 31 22.0-30.0 mmol/L GAP 11.1 5-15 mEq/L BUN 11 7-17 mg/dl CREATT 0.90 0.52-1.04 mg/dl GFRAA 79 >60 ML/MIN EGFR 65 >60 ml/min GLU 98 74-100 mg/dl CA 8.9 8.4-10.2 mg/dl BILIT 0.6 0.2-1.3 mg/dl AST 38 14-36 U/L ALT 37 12-78 U/L TP 6.9 6.3-8.2 g/dl ALB 4.8 3.5-5.0 g/dl GLOB 2.1 1.3-3.2 g/dL AGRATIO 2.3 1.1-1.8 ALP 96 38-126 U/L Medications Medication SIG (Take, Route, Frequency, Duration) [...] TIMES A DAY; Duration: 90 DAYS Active Escitalopram Oxalate 20 MG 1 tablet Oral ly Once a day; Duration: 90 days Active Carvedilol 3.125 MG 1 tab(s) orally 2 ti mes a day; Duration: 90 days Active Jardiance 10 MG 1 tab(s) orally once a day (in the morning) Active OZEMPIC 8 MG/3 ML (2 MG DOSE) DIRECTED SUBCUTANEOUSLY ONCE A WEEK Active Rosuvastatin Calcium 40 MG 1 tablet [...] W/U Status Risk Notes Problem Primary insomnia (4723683) Primary insomnia (F51.01) Active confirmed Problem Vasomotor rhinitis (0063833) Vasomotor rhinitis (J30.0) Active confirmed Problem Chronic rhinitis (40844232) Chronic rhinitis (J31.0) Active confirmed Problem Dysuria (29838228) Dysuria (R30.0) Active confirmed Problem Obese class I (finding) (258666924496362 ) Obesity (BMI 30.0-34.9) (E66.9) Active confirmed Problem Mixed anxiety and depressive disorder (675710934) Depression with anxiety (F41.8) Active confirmed Problem Anxiety (72905638) Anxiety (F41.9) Active confirmed Problem Neuropathy (717721155) Neuropathy (G62.9) Active confirmed Problem Essential hypertension (41387350) Essential hypertension (I10) Active confirmed Problem Seasonal allergy (813072626) Seasonal allergies (J30.2) Active confirmed Problem Allergic rhinitis (87693474) Chronic allergic rhinitis (J30.9) Active confirmed Problem Body mass index 30.00 to 34.99 (452162741372694 ) BMI 34.0-34.9,adult (Z68.34) Active confirmed Problem Body mass index 30.00 to 34.99 (677249848830921 ) BMI 31.0-31.9,adult (Z68.31) Active confirmed Problem Obese class I (598096652679024 ) BMI 33.0-33.9,adult (Z68.33) Active confirmed Problem Chronic systolic heart failure (783543172) Chronic systolic congestive heart failure (I50.22) Active confirmed Problem Chronic insomnia (777461443) Chronic insomnia (F51.04) Active confirmed Problem Skin tag (16634942) Skin tag (L91.8) Active confirmed Problem Obese class II (301949370542409 ) BMI 35.0-35.9,adult (Z68.35) Active confirmed Problem Shoulder joint pain (066529832) Acute pain of left shoulder (M25.512) Active confirmed Problem Adult health examination (953992887) Healthcare maintenance (Z00.00) Active confirmed Problem Seasonal allergic rhinitis (897425901) Acute seasonal allergic rhinitis (J30.2) Active confirmed Problem Chronic kidney disease stage 2 (528349306) Stage 2 chronic kidney disease (N18.2) Active confirmed Problem COVID-19 (602265155) COVID-19 (U07.1) Active confirmed Problem Systolic heart failure (699737796) HFrEF (heart failure with reduced ejection fraction) (I50.20) Active confirmed Vital Signs Heart Rate 80 /min 05/30/2025 Temperature 97.6 degrees Fahrenheit 05/30/2025 Blood pressure diastolic 64 mm Hg 05/30/2025 Height 62.5 in 05/30/2025 Blood pressure systolic 90 mm Hg 05/30/2025 Weight 157.2 lbs 05/30/2025 BMI 28.29 kg/m2 05/30/2025 Encounters Encounter Location Date Provider Diagnosis [facility] [address] [facility] [address] [place] [address] 11/19/2024 Provider Migration Vasomotor rhinitis J30.0 and Dysuria R30.0 [facility] [address] [facility] [address] [place] [address] 05/30/2025 Nora McNees HFrEF (heart failure with reduced ejection fraction) I50.20 ; Routine medical exam Z00.00 ; Depression with anxiety F41.8 ; Essential hypertension I10 ; Visit for screening mammogram Z12.31 ; BMI 28.0-28.9,adult Z68.28 ; Encounter for immunization Z23 and Chronic rhinitis J31.0 [facility] [address] [address] 01/19/2025 Andres Baxter [facility] [address] [facility] [address] [place] [address] 05/30/2025 Nora McNees Vasomotor rhinitis J30.0 [facility] [address] [facility] [address] [place] [address] 06/09/2025 Andres Baxter Assessments Encounter Date Diagnosis (ICD Code) Assessment Notes Treatment Notes Treatment Clinical Notes Section Notes 11/19/2024 Vasomotor rhinitis (ICD-10 - J30.0) 11/19/2024 Dysuria (ICD-10 - R30.0) 05/30/2025 Vasomotor rhinitis (ICD-10 - J30.0) 05/30/2025 Routine medical exam (ICD-10 - Z00.00) Mammogram due, will schedule C-scope UTD Immunizations UTD 05/30/2025 HFrEF (heart failure with reduced ejection fraction) (ICD-10 - I50.20) Euvolemic on exam. Continue meds as above. Keep FU with cardiology 05/30/2025 Depression with anxiety (ICD-10 - F41.8) [...] Treatment Pending Test Test Name Order Date H-TSH 06/07/2013 H-parietal cell antibodies for pernicous anemia 08/16/2013 M-Vitamin B12 11/15/2020 M-COVID PCR SINGLE RAPID 08/31/2020 COMPREHENSIVE METABOLIC PANEL (99314) Insurance Providers Payer Name Payer Address Payer Phone Subscriber Number Group Number Insured Name Patient Relationship to Insured Coverage Start Date Coverage End Date [facility] [address] [place] [address] [id number] Sarai Norris Self - patient is the [...]
--- OUTSIDE RECORDS SUMMARY | 2025-07-26 07:16 | XMS_ITS ---
Author Organization Unknown ENCOUNTERS Encounter Performer Location Date Diagnosis Diagnosis Status Emergency [place] [address] [place] [address] [id number] XS Emergency Dedrick Motley [place] [address] [place] [address] [id number] STU Emergency [place] [address] [place] [address] [id number] STU *Note: Encounters from your own facility or health system may be excluded. Allergies, Adverse Reactions, Alerts Allergen Type Severity Identification Date Medications Name Date Quantity Days Supplied [facility] Number
--- OUTSIDE RECORDS SUMMARY | 2025-07-26 07:16 | XMS_ITS | Encounter Summary ---
Author Organization [facility] Address [address] [place] [address] Care Team Providers Care Vamp Stitcher Name Role Phone Andres Baxter MD Primary Care Provider [phone] Encounter Details Date Type Department Care Team [...] 11:00 AM EST Office Visit [facility] [address] [facility] [address] [place] [address] Chetan Templeton MD 3000 [facility] [address] [place] [phone] documented as of this encounter Visit Diagnoses Not on filedocumented in this encounter Care Teams Vamp Stitcher Relationship Specialty Start Date End Date Andres Baxter MD [address] [facility] [address] [place] [address] PCP - General Adolescent Medicine 09/23/24 documented as of this encounter
--- OUTSIDE RECORDS SUMMARY | 2025-07-26 07:16 | XMS_ITS | Encounter Summary ---
Author Organization [facility] Address [address] [place] [address] Care Team Providers Care Checker Loader Name Role Phone Andres Baxter MD Primary Care Provider [phone] Reason for Visit * Reason Comments Med Refill Encounter Details Date Type Department Care Team (Late st Contact Info) Description 06/15/2025 Refill [facility] [address], [place] [address] Chetan Templeton MD [address] [facility] [address] [place] [address] Med Refill Social History Tobacco Use Types [...] Description 08/02/2025 11:00 AM EST Office Visit [facility] [address], [place] [address] Chetan Templeton MD [address] [facility] [address] [place] [address] documented as of this encounter Visit Diagnoses Diagnosis Hyperlipidemia LDL goal <70 Other and unspecified hyperlipidemia documented in this encounter Care Teams Checker Loader Relationship Specialty Start Date End Date Andres Baxter MD [address] [facility] [address] [place] [address] PCP - General Adolescent Medicine 09/23/24 documented as of this encounter
--- OUTSIDE RECORDS SUMMARY | 2025-07-26 07:16 | XMS_ITS | Encounter Summary ---
Author Organization [facility] Address [address] [place] [address] Care Team Providers Care Financial Planning Adviser Name Role Phone Andres Sow MD Primary Care Provider [phone] Reason for Visit * Reason Onset Date Comments LAB ORDER REQUEST 05/29/2025 Encounter Details Date Type Department Care Team (Late st Contact Info) Description 05/29/2025 Telephone [facility] [address] [place] [phone] Chetan Castro MD [address] [facility] [address] [place] [address] LAB ORDER REQUEST Social History Tobacco Use [...] the office a call back. Anyone from [place] station can take call or give message. * Telephone Encounter - Rebeca Panda MA - 05/29/2025 3:45 PM EDT Attempted call to patient, left message on machine. * Telephone Encounter - Dedrick Bonilla RegSched Rep - 05/29/2025 2:19 PM EDT Caller: Sarai Norris Relationship: Self Best call back number: [phone] What is the best time to reach [...] Description 08/02/2025 11:00 AM EST Office Visit [facility] [address] [facility] [address] [address] Chetan Castro MD [address] [facility] [address] [place] [address] documented as of this encounter Visit Diagnoses Not on filedocumented in this encounter Care Teams Financial Planning Adviser Relationship Specialty Start Date End Date Andres Sow MD [address] [place] [facility] [address] [place] [address] PCP - General Adolescent Medicine 09/23/24 documented as of this encounter
--- OUTSIDE RECORDS SUMMARY | 2025-07-26 07:16 | XMS_ITS | Clinical Summary ---
Author Organization [facility] Address [address] [place] [address] Care Team Providers Care Manager Field Sales Name Role Phone Andres Baxter MD Primary Care Provider [phone] Allergies Active Allergy Reactions Criticality Noted Date Comments Sulfamethoxazole-Trimethop rim Rash Low 06/26/2025 Patient reports she had a reaction to it back in 2000 Medications Azelastine-Fluti casone 137-50 MCG/ACT suspension 1 spray by Alternating Nares route 2 (Two) Times a Day. shake liquid 4 Active escitalopram (LEXAPRO) 20 MG tablet Take 1 tablet by mouth Daily. Active estradiol (ESTRACE) 1 MG tablet Take 1 tablet by mouth Daily. 5 Active levocetirizine (XYZAL) 5 MG tablet Take 1 tablet by mouth Every Evening. 5 Active Gallifrey 5 MG tablet Take 1 tablet by mouth Daily. 5 Active Singulair 10 MG tablet Take 1 tablet by mouth Every Night. Active carvedilol (COREG) 6.25 MG tablet TAKE 1 TABLET BY MOUTH TWICE DAILY WITH MEALS 180 tablet 1 5 Active Additional Information Patient not taking.Reported on 06/26/2025 Jardiance 10 MG tablet tablet TAKE 1 TABLET BY MOUTH DAILY 90 tablet 5 Active Finerenone (Kerendia) 20 MG tabletIndication s:Chronic left ventricular systolic heart failure Take 1 tablet by mouth Daily. 90 tablet 1 5 Active estradiol (ESTRACE) 2 MG tablet Take 1 tablet by mouth Daily. 5 Active Progesterone (PROMETRIUM) 100 MG capsule Take 1 capsule by mouth Daily. 5 Active carvedilol (COREG) 3.125 MG tablet Take 1 tablet by mouth 2 (Two) Times a Day With Meals. Active Sodium Hyaluronate, oral, (HYALURONIC ACID PO) Take 1,000 mg by mouth Daily. Active Cholecalciferol (Vitamin D-3) 125 MCG (5000 UT) tablet Take 1 tablet by mouth Daily. Active ASTAXANTHIN PO Take 12 mg by mouth Daily. Active sacubitril-valsa rtan (Entresto) 24-26 MG tablet Take 1 tablet by mouth Every 12 (Twelve) Hours. 180 tablet 1 5 Active Semaglutide, 2 MG/DOSE, (Ozempic, 2 MG/DOSE,) 8 MG/3ML solution pen-injectorIndi cations:Atherosc lerosis of [place] coronary artery of [place] heart without angina pectoris Inject 2 mg under the skin into the appropriate area as directed 1 (One) Time Per Week. 9 mL 1 5 Active rosuvastatin (CRESTOR) 40 MG tabletIndication s:Hyperlipidemia LDL goal <70 Take 1 tablet by mouth Daily. 90 tablet 1 5 Active Active Problems No known active problems Encounters Date Type Department Care Team Description 06/26/2025 9:30 AM EST Office Visit [facility] [address] [place] [address] [address] [place] [address] Chetan Templeton MD Dilated cardiomyopathy (Primary Dx); Chronic left ventricular systolic heart failure; Prediabetes; Hyperlipidemia LDL goal <100; Atherosclerosis of [place] coronary artery of [place] heart without angina pectoris; Hyperlipidemia LDL goal <70 06/26/2025 Patient rounding ([facility] only) [facility] [address] [place] [address] [address] [place] [address] Chetan Templeton MD 06/26/2025 Travel 06/15/[address] [facility] [address] [place] [address] [address] [place] [address] Chetan Templeton MD Med Refill 06/01/[address] [facility] [address] [place] [address] [address] [phone] ERES- ORDERS/ MEDICATION UPDATE 05/29/[address] [facility] [address] [place] [address] [address] [phone] Chetan Templeton MD LAB ORDER REQUEST 05/23/[address] [facility] [address] [place] [address] [address] [phone] Chetan Templeton MD Med Refill 05/01/[address] [facility] [address] [place], [place] [phone] Chetan Templeton MD Med Refill 04/28/[address] [facility] [address] [place] [phone] Chetan Templeton MD Med Refill from Last [...] Description 08/02/2025 11:00 AM EST Office Visit [facility] [address] [facility] [address], [place] [phone] Chetan Templeton MD [address] [facility] [address] [place] [address] Health Maintenance Due Date Last Done Comments [...] URINE ORDERABLES Final Result Performing Organization Address [facility] Co de Phone Number [facility] * Lipoprotein A (LPA) (06/20/2025) Blood us Chetan Templeton MD LAB BLOOD ORDERABLES Final Resul t Performing Organization Address [facility] Co de Phone Number [facility] * Hemoglobin A1c (06/20/2025) Blood us Chetan Templeton MD LAB BLOOD ORDERABLES Final Resul t Performing Organization Address [facility] Co de Phone Number [facility] * Hepatic Function Panel (06/20/2025) Blood us Chetan Templeton MD LAB BLOOD ORDERABLES Final Resul t Performing Organization Address [facility] Co de Phone Number [facility] * Lipid Panel (12/16/2024 1:17 PM EDT) Blood us Chetan Templeton MD LAB BLOOD ORDERABLES Final Resul t Performing Organization Address [facility] Co de Phone Number [facility] from Last 3 Months or Most Recently Relevant to Health Maintenance Insurance EMPLOYEE Care Teams Manager Field Sales Relationship Specialty Start Date End Date Andres Baxter MD [address] [place] [address] [place] [address] PCP - General Adolescent Medicine 09/23/24
--- OUTSIDE RECORDS SUMMARY | 2025-07-26 07:16 | XMS_ITS | Encounter Summary ---
Author Organization [facility] Address [address] [place] [address] Care Team Providers Care Insurance Manager Name Role Phone Andres Baxter MD Primary Care Provider [phone] Encounter Details Date Type Department Care Team (Late st Contact Info) Description 06/26/2025 Patient rounding [place] [place] [facility] [address] [facility] [address], [place] [address] Chetan Templeton MD [address] [facility] [address] [place] [address] Social History Tobacco Use Types Packs/Day Years [...] is Mylene Love, and I am the Banquet Server for [facility] [place]. I would like to thank you for [...] with your visit with us as a [facility] facility? Over the next few days, you will be receiving a Patient Experience Survey. Please consider taking the survey, as it helps [facility] in improving their patient care. Thank you for taking the time to answer our questions today. I hope you have a good day. documented in this encounter Plan of Treatment Upcoming Encounters Date Type Department Care Team (Late st Contact Info) Description 08/02/2025 11:00 AM EST Office Visit [facility] [address] [facility] [address], [place] [phone] Chetan Templeton MD [address] [facility] [address] [place] [address] documented as of this encounter Visit Diagnoses Not on filedocumented in this encounter Care Teams Insurance Manager Relationship Specialty Start Date End Date Andres Baxter MD [address] [facility] [address] [facility] [address] [place] [address] PCP - General Adolescent Medicine 09/23/24 documented as of this encounter
[2025-07-26 10:52] LABS: Anion Gap 14.2 mEq/L (5-15); Blood Urea Nitrogen 12 mg/dl (7-17); Calcium 9.4 mg/dl (8.4-10.2); Carbon Dioxide 25 mmol/L (22.0-30.0); Chloride 107 mmol/L (98-107); Creatinine,Serum 0.90 mg/dl (0.52-1.04); Estimated Glomerular Filt Rate 65 ml/min (>60); GFR (African American) 79 ML/MIN (>60); Glucose 92 mg/dl (74-100); Potassium 4.2 mmoL/L (3.5-5.1); Sodium 142 mmol/L (136-145)
[2025-07-26 10:57] LABS: NT Pro Brain Natriuretic Pep. 241 pg/mL (0-125)
== END 2025-07-26 23:59 | disposition home or self-care (01) ==
LOC: LAB 07:12
PROVIDERS: PCP Internal Medicine Adolescent Medicine; Visit Provider Internal Medicine Interventional Cardiology
DX: I50.22 Chronic systolic (congestive) heart failure (principal)
CPT/HCPCS: 36415; 80048; 83880